=== PATIENT | male | born 1940 | race Caucasian/White ===

== ENCOUNTER → 2018-03-31 08:30 | Outpatient (CLI) | payer MEDICARE, SELFPAY ==
[2018-03-31 09:44] LABS: Alanine Aminotransferase 56 IU/L (21-72); Aspartate Aminotransferase 52 IU/L (17-59); Bilirubin Total 1.3 mg/dL (0.2-1.3); Blood Urea Nitrogen 12 mg/dL (9-20); Calcium 9.4 mg/dL (8.4-10.2); Carbon Dioxide 25 mmol/L (22-32); Chloride 102 mmol/L (98-107); Cholesterol 181 mg/dL (140-199); Estimated Glomerular Filt Rate > 60.0 mL/min (>60); Glucose 208 mg/dL (80-110); HDL Cholesterol 64 mg/dL (40-60); HEMOLYSIS < 15 (0-50); LDL Cholesterol Calculated 80 mg/dL (<100); Potassium 3.8 mmol/L (3.4-5.1); Sodium 141 mmol/L (137-145); Triglycerides 186 mg/dL (35-150)
[2018-03-31 09:52] LABS: INR 1.1 (0.9-1.3); Prothrombin Time 12.4 SECONDS (10.1-12.7)
[2018-03-31 10:11] LABS: Prostate Specific Antigen Scrn 2.48 ng/mL (0.1-4.0)
== END ==
PROVIDERS: Visit Provider Internal Medicine
DX: I10 Essential (primary) hypertension (principal); Z00.00 Encounter for general adult medical examination without abnormal findings; F10.10 Alcohol abuse, uncomplicated
CPT/HCPCS: 36415; 80048; 80061; 82247; 84450; 84460; 85610; G0103

== ENCOUNTER → 2019-03-20 08:09 | Outpatient (CLI) | payer MEDICARE, SELFPAY ==
--- NOTE | 2019-03-20 | DI.RAD.S_ITS ---
PROCEDURE: XR CERVICAL SPINE 4V OR 5V INDICATIONS: Generalized abdominal pain TECHNIQUE: 5 views of the cervical spine acquired. COMPARISON: None. FINDINGS: Bones: No fractures or dislocations to the T1 level. Oblique images demonstrate no bony foraminal stenoses. Note is made of a moderate degree of degenerative disc disease at C5-6 and a slightly less degree of degeneration is noted at the disc levels C4-5. The oblique views show neural foraminal stenosis from facet osteoarthritis at these 2 levels, moderate in severity and symmetric. Soft tissues: No prevertebral soft tissue swelling. IMPRESSION: No trauma found, and no subluxation present. 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 Dictated by: Aravind Wu M.D. on 03/20/2019 at 10:51 Approved by: Aravind Wu M.D. on 03/20/2019 at 10:52
--- NOTE | 2019-03-20 09:03 | DI.CT.S_ITS ---
PROCEDURE: CT ABDOMEN PELVIS WO CON INDICATIONS: Generalized abdominal pain TECHNIQUE: After the administration of oral contrast, 5 mm thick sections acquired from the diaphragms to the symphysis. 5 mm coronal and sagittal reformats were performed. For radiation dose reduction, the following was used: automated exposure control, adjustment of mA and/or kV according to patient size. COMPARISON: None. FINDINGS: Image quality: Excellent. ABDOMEN: Lung bases: Lung bases are clear. Heart size is normal. Solid organs: Liver is normal in size. There is a low density lesion in the posterior segment of the right lobe of the liver which measures approximately 2.7 cm, and may potentially represent a metastatic lesion. Gallbladder is unremarkable. There is a necrotic appearing mass in the midabdomen which appears to arise from the pancreatic body, likely representing a adenocarcinoma of the pancreas. It measures approximately 5.6 x 7.6 x 5.8 cm. It may also involve the posterior wall of the stomach. Spleen is normal in size. No adrenal nodules. Both kidneys are normal in size, without hydronephrosis or nephrolithiasis. Peritoneum and bowel: Bowel loops demonstrate normal wall thickness and caliber. No free fluid or air. Nodes and vessels: No retroperitoneal or mesenteric adenopathy by size criteria. Aorta and inferior vena cava are normal in size. Shotty mesenteric adenopathy. The largest single lymph node, just anterior to the inferior vena cava, measures approximately 2.6 x 1.1 x 2.1 cm. Miscellaneous: No ventral hernias. PELVIS: Genitourinary: Bladder wall thickness is normal. Miscellaneous: Question previous repair of right inguinal hernia. Mild left inguinal hernia containing fat.. Bones: No suspicious bony lesions. No vertebral body compression fractures. Bilateral total hip arthroplasties. IMPRESSION: Findings are highly suspicious for a large pancreatic adenocarcinoma, which may potentially involve the posterior wall of the stomach. There is also a possible liver metastatic lesion. Comment: Recommend CT with contrast or multiphase MRI. After either of these studies is performed, the pancreatic mass, or the liver mass (does not hemangioma) would be amenable to image guided biopsy. Dictated by: Simón Cavazos M.D. on 03/20/2019 at 10:07 Approved by: Simón Cavazos M.D. on 03/20/2019 at 10:16
[2019-03-20 09:29] LABS: Add Manual Diff / Slide Review NO; Basophils Absolute Auto 100 /uL (0-100); Basophils Percent Auto 0.8 % (0-2); Eosinophils Absolute Auto 900 /uL (0-450); Eosinophils Percent Auto 7.3 % (2-4); Hematocrit 46.2 % (41-53); Lymphocytes Absolute Auto 2300 /uL (1100-4500); Mean Corpuscular HGB Conc 34.5 % (30-36); Mean Corpuscular Volume 101.5 fL (80-100); Monocytes Absolute Auto 1100 /uL (0-900); Monocytes Percent Auto 8.3 % (3-14); Neutrophils Absolute Auto 8300 /uL (1500-7000); Neutrophils Percent Auto 65.6 % (50-75); Platelet Count 333 X10^3/uL (150-400); Red Blood Cell Count 4.56 X10^6/uL (4.5-5.9); Red Cell Distribution Width 12.7 % (11.6-14.8); White Blood Cell Count 12.7 X10^3/uL (4.5-11.0)
[2019-03-20 09:38] LABS: Hemoglobin A1C% w Est Avg Glu 6.5 % (4.0-6.0)
[2019-03-20 09:41] LABS: Alanine Aminotransferase 20 IU/L (<50); Albumin 4.1 g/dL (3.5-5.0); Albumin Globulin Ratio 1.2 (1.0-2.8); Alkaline Phosphatase 122 U/L (38-126); Aspartate Aminotransferase 34 IU/L (17-59); BUN Creatinine Ratio 11.3 (6-22); Bilirubin Total 1.2 mg/dL (0.2-1.3); Blood Urea Nitrogen 9 mg/dL (9-20); Calcium 9.6 mg/dL (8.4-10.2); Carbon Dioxide 27 mmol/L (22-32); Chloride 98 mmol/L (98-107); Estimated Glomerular Filt Rate > 60.0 mL/min (>60); Globulin 3.3 g/dL (1.7-4.1); Glucose 188 mg/dL (80-110); HEMOLYSIS < 15 (0-50); Potassium 3.7 mmol/L (3.4-5.1); Sodium 137 mmol/L (137-145); Total Protein 7.4 g/dL (6.3-8.2)
[2019-03-20 10:10] LABS: TSH w/ Reflex to FT4 2.73 uIU/mL (0.47-4.68)
== END ==
PROVIDERS: Visit Provider Internal Medicine
DX: R10.84 Generalized abdominal pain (principal); K86.9 Disease of pancreas, unspecified; K76.9 Liver disease, unspecified; K40.90 Unilateral inguinal hernia, without obstruction or gangrene, not specified as recurrent; M50.321 Other cervical disc degeneration at C4-C5 level; M48.02 Spinal stenosis, cervical region; M47.812 Spondylosis without myelopathy or radiculopathy, cervical region; R63.0 Anorexia; E11.9 Type 2 diabetes mellitus without complications; R63.4 Abnormal weight loss
CPT/HCPCS: 36415; 72050; 74176; 80053; 83036; 84443; 85025; Q9967

== ENCOUNTER → 2019-03-21 11:02 | Outpatient (CLI) | payer MEDICARE, SELFPAY ==
--- NOTE | 2019-03-21 | DI.CT.S_ITS ---
PROCEDURE: CT ABDOMEN W CON INDICATIONS: PANCREATIC MASS TECHNIQUE: After the administration of intravenous contrast, 5 mm thick sections acquired from the diaphragm to the iliac crests. 5 mm coronal and sagittal reformats were performed. For radiation dose reduction, the following was used: automated exposure control, adjustment of mA and/or kV according to patient size. COMPARISON: CT abdomen pelvis without IV contrast earlier today. FINDINGS: Image quality: Excellent. Lung bases: Cavitary nodule the right lung base measuring 12 mm, (7/4). Right lower lobe pulmonary nodule measuring 8 mm, (3/66). Solid pulmonary nodule the left lung base measuring 6 mm (7/14). Mild bibasilar atelectasis. Heart size is normal. Solid organs: Hypoenhancing cystic pancreatic mass in the body of the pancreas measuring 7.5 x 5.7 cm, (2/55). The mass is exophytic anteriorly into and abuts the gastric wall. There is upstream pancreatic ductal dilatation measuring 0.8 cm, (6/58). The mass encases the splenic artery and splenic vein. The pancreatic head and neck are atrophic. Liver is normal in size. There are multiple (approximately 15) rim-enhancing hepatic metastases. For example: -Inferior right lobe measuring 2.8 x 2.7 cm, (2/61). -Left hepatic lobe anteriorly measuring 1 x 0.9 cm, (2/47). Gallbladder is mildly distended. No calcified gallstones seen. No pericholecystic fluid. Biliary system is non dilated. Spleen is normal in size and enhancement. No adrenal nodules. Kidneys demonstrate normal size and enhancement, without hydronephrosis. Small cortical and peripelvic cysts bilaterally. No solid mass. Peritoneum and bowel: Bowel loops demonstrate normal wall thickness and caliber. No free fluid or air. Nodes and vessels: A precaval lymph node measuring 2 x 1.3 cm (2/60). Small retroperitoneal lymph nodes. Aorta and inferior vena cava are normal in size. Moderate calcified atherosclerotic plaque in the abdominal aorta. Miscellaneous: No ventral hernias. Bones: No suspicious lesion identified. Degenerative change. IMPRESSION: 1. Hypoenhancing cystic mucinous pancreatic mass measuring 7.5 cm. 2. Multiple rim-enhancing hepatic metastases. 3. Enlarged precaval lymph node. 4. Multiple pulmonary nodules of the lung bases. Dictated by: Judd Herrera M.D. on 03/21/2019 at 16:00 Approved by: Judd Herrera M.D. on 03/21/2019 at 16:24
--- NOTE | 2019-03-28 13:10 | ONC.MSW ---
Description: Initial Referral Navigation T/C Activity: Left message for pt introducing myself as the navigator and role, confirmed that we have his referral and will f/u with him after 04/03 to schedule, per his request.
== END ==
PROVIDERS: Visit Provider Internal Medicine
DX: C78.7 Secondary malignant neoplasm of liver and intrahepatic bile duct (principal); K86.89 Other specified diseases of pancreas; R91.8 Other nonspecific abnormal finding of lung field; R59.0 Localized enlarged lymph nodes; J98.11 Atelectasis; N20.0 Calculus of kidney
CPT/HCPCS: 74160; Q9967

== ENCOUNTER → 2019-04-04 14:49 | Oncology outpatient (ONC) | payer MEDICARE, SELFPAY ==
[2019-04-03 15:14] VITALS: BP 143/82; PULSE 87; RESP 16; TEMP 36.9; O2SAT 97
--- NOTE | 2019-04-03 16:02 | P.CONONC_ITS ---
History of Present Illness - Data of Consult Consult date: 04/03/19 - Consult Narrative Narrative: Diagnosis: Probable metastatic pancreatic cancer History of present illness: Nathan Schafer is a 79 year old male who is referred for further evaluation of a newly discovered pancreatic mass. The patient reports that over the last year, he has had a gradual decline in his appetite and weight. These changes have been more severe over the last 3 months. He has also developed increasing fatigue. He thinks that he has lost 30-40 lb. He is not having any vomiting but does have occasional nausea. He has not been having any persistent abdominal pain. He has been tending towards constipation and has not been having any diarrhea. Because of his weight loss, his suggested that he seek medical attention. He had a CT scan done that showed a mass in the pancreas. There also multiple rim enhancing lesions throughout the liver. There are few small pulmonary nodules. He has not yet had a biopsy performed. His past medical history is notable for diabetes and hypertension. He has had prior cataract surgery and hip surgery. His medications include Aleve, hydrochlorothiazide, lisinopril, metformin and vitamins Family history is notable for brother with colon cancer. There is no other family history of malignancy. Social history: He is . He does not smoke but does drink about a half a bottle of wine daily. 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 CC: Lenin Verduzco MD Home Medications and Allergies Home Medications Medication Instructions Recorded Confirmed Type hydrochlorothiazide 25 mg PO DAILY 04/03/19 04/03/19 History lisinopril 10 mg PO DAILY 04/03/19 04/03/19 History naproxen sodium [Aleve] 220 mg PO Q12H PRN 04/03/19 04/03/19 History vitamin B complex 1 tab PO DAILY 04/03/19 04/03/19 History Allergies Allergy/AdvReac Type Severity Reaction Status Date / Time No Known Drug Allergies Allergy Verified 04/03/19 15:14 Medical History - Social History Smoking Status: Never smoker Alcohol Intake Frequency: 3 or more drinks per day Review of Systems - Patient Self-Reported Symptoms SR Constitution: Weight loss/gain SR ears, nose, mouth, throat issues: Ears ringing SR Gastrointestinal issues: Poor or no appetite Constitutional: weight loss, decreased activity level Cardiovascular: no chest pain Respiratory: no shortness of breath Gastrointestinal: change in appetite, nausea, constipation, no abdominal pain, no vomiting Musculoskeletal: pain Hematologic/Lymphatic: no enlarged lymph nodes Exam Vital signs: Vital Signs Temp Pulse Resp BP Pulse Ox 04/03/19 15:14 98.4 F 87 16 143/82 H 97 Intake and Output 04/03/19 04/03/19 04/03/19 07:59 15:59 23:59 Other: Weight 105.5 kg Patient Weight 04/03/19 23:59 Weight 105.5 kg - Constitutional positive no acute distress, positive average body habitus Comments: He is hard of hearing. - Routine HEENT Exam Head: Present: normocephalic, atraumatic Eye: Present: EOMI, PERRL. Absent: conjunctival icterus, scleral injection ENT: Present: mucous membranes moist, oropharynx clear - Routine Neck Exam Present: supple. Absent: lymphadenopathy, thyromegaly - Routine Respiratory Exam Present: Clear to auscultation bilaterally. Absent: rales, wheezes - Routine Cardiovascular Exam Present: RRR, S1, S2. Absent: murmur - Routine Abdominal Exam Present: soft, normoactive bowel sounds. Absent: tenderness, organomegaly, mass - Routine Extremities Exam Absent: cyanosis, clubbing, edema - Routine Back/Spine Exam Back/Spine: Absent: vertebral tenderness - Routine Skin Exam Present: intact. Absent: petechiae, rash - Routine Neurological Exam Present: alert, oriented X3 - Routine Psychiatric Exam Present: normal affect, normal thought process Results - Imaging Additional studies: Procedures Replacement of Left Hip Joint with Synthetic Substitute, Uncemented, Open Approach (05/19/15) Reposition Left Femoral Shaft with Internal Fixation Device, Open Approach (05/19/15) Assessment and Plan (1) Pancreatic mass Current visit: Yes Status: Acute 79-year-old man with anorexia and weight loss. His CT scan demonstrates 7 cm pancreatic mass with probable liver and possible lung metastasis. He has not yet had a biopsy. This is I think most consistent with an adenocarcinoma of the pancreas. It is possible though I think less likely that it might represent a neuroendocrine tumor. I explained that on average, pancreatic cancers tended to grow relatively quickly. Chemotherapy could prolonged survival but at the risk for potential toxicity. The survival benefit is usually measured in months. I described the gemcitabine and Abraxane given intravenously. Side effects including alopecia, nausea and vomiting, myelosuppression and risk for fatigue, risk for infection, risk for allergic reactions and neuropathy were also reviewed. I explained that some patients elected not to pursue chemotherapy. In those cases, we would often get hospice involved. The patient indicates that he is not inclined to pursue chemotherapy and would prefer a more palliative approach. I think that is quite reasonable. We talked about the potential for pursuing a biopsy either percutaneous liver lesion or endoscopy with a biopsy of the pancreatic mass. This would potentially confirm the diagnosis and give us more definitive prognostic information. Since he is not inclined to pursue chemotherapy however, we could just follow him expectantly to get a better idea of his cancers velocity. He would prefer to avoid invasive procedures specially if they do not lead to a treatment decision. With that in mind, we will forego immediate biopsy. Instead, we will check a CA 19 9 today. He will return to clinic in about 4 weeks for follow-up with repeat labs. If he does develop of pain in the interim, he will let us know. He and his had questions regarding the course of a metastatic pancreatic cancer. I described the potential for abdominal or back pain. The potential for liver failure. We also talked about constitutional symptoms including anorexia weight loss and weakness. They had questions regarding appetite stimulants. I explained that medical marijuana of sometimes is helpful. Other options such as Megace or steroids would have a lower likelihood of success and the potentially more side effects. He will return to clinic in about 4 weeks for follow-up but sooner should any new symptoms arise.
[2019-04-04 15:21] LABS: Add Manual Diff / Slide Review NO; Basophils Absolute Auto 100 /uL (0-100); Basophils Percent Auto 0.9 % (0-2); Eosinophils Absolute Auto 700 /uL (0-450); Eosinophils Percent Auto 5.2 % (2-4); Hematocrit 43.5 % (41-53); Hemoglobin 14.8 g/dL (13.5-17.5); Lymphocytes Absolute Auto 1800 /uL (1100-4500); Lymphocytes Percent Auto 12.8 % (25-40); Mean Corpuscular Volume 99.9 fL (80-100); Monocytes Absolute Auto 1500 /uL (0-900); Monocytes Percent Auto 10.8 % (3-14); Neutrophils Absolute Auto 9700 /uL (1500-7000); Neutrophils Percent Auto 70.3 % (50-75); Platelet Count 306 X10^3/uL (150-400); Red Blood Cell Count 4.36 X10^6/uL (4.5-5.9); Red Cell Distribution Width 12.6 % (11.6-14.8); White Blood Cell Count 13.7 X10^3/uL (4.5-11.0)
[2019-04-04 15:30] LABS: Alanine Aminotransferase 22 IU/L (<50); Albumin 3.8 g/dL (3.5-5.0); Albumin Globulin Ratio 1.2 (1.0-2.8); Alkaline Phosphatase 127 U/L (38-126); Aspartate Aminotransferase 31 IU/L (17-59); BUN Creatinine Ratio 14.3 (6-22); Bilirubin Total 0.8 mg/dL (0.2-1.3); Blood Urea Nitrogen 10 mg/dL (9-20); Calcium 9.2 mg/dL (8.4-10.2); Carbon Dioxide 27 mmol/L (22-32); Chloride 98 mmol/L (98-107); Estimated Glomerular Filt Rate > 60.0 mL/min (>60); Globulin 3.3 g/dL (1.7-4.1); Glucose 237 mg/dL (80-110); HEMOLYSIS < 15 (0-50); Potassium 3.8 mmol/L (3.4-5.1); Sodium 134 mmol/L (137-145); Total Protein 7.1 g/dL (6.3-8.2)
[2019-04-06 15:33] LABS: Cancer (Carbohydrate) Ag 19-9 6129 U/mL (< 34)
--- NOTE | 2019-05-07 11:28 | ONC.MSW ---
*Sent bereavement card.
== END ==
DX: K86.9 Disease of pancreas, unspecified (principal); K76.9 Liver disease, unspecified; R91.8 Other nonspecific abnormal finding of lung field; R63.0 Anorexia; R63.4 Abnormal weight loss; E11.9 Type 2 diabetes mellitus without complications; I10 Essential (primary) hypertension
CPT/HCPCS: 36415; 80053; 85025; 86301; 99204; 99214

== ENCOUNTER 2019-04-19 04:30 | Observation (INO) | payer MEDICARE, SELFPAY ==
[2019-04-19] VITALS (7 sets, daily range): BP systolic 111–143; BP diastolic 63–75; PULSE 74–106; RESP 16–25; TEMP 36.6–37.4; O2SAT 96–99; BMI 32.1
--- NOTE | 2019-04-19 04:41 | ED_ITS ---
HPI - SOB/Dyspnea General Chief Complaint: Shortness of Breath/Dyspnea Stated Complaint: Coughing up blood Time Seen by Provider: 04/19/19 04:38 Source: family, EMS and old records reviewed Limitations: no limitations History of Present Illness HPI Narrative: Patient is a 79-year-old male with a prostate cancer not currently undergoing treatment and is going to elect hospice however not admitted to hospice yet presenting today with hemoptysis. states that he does cough quite violently at times in today he coughed up 3/4 to a cup full of blood. He did not vomit. He has no abdominal pain he is not short of breath, he denies any chest pain or heart palpitations. He is overall weak and fatigued. We are agreeable to workup of hemoptysis but goal is for him to return home. Related Data Home Medications Medication Instructions Recorded Confirmed hydrochlorothiazide 25 mg PO DAILY 04/03/19 04/03/19 lisinopril 10 mg PO DAILY 04/03/19 04/03/19 naproxen sodium [Aleve] 220 mg PO Q12H PRN 04/03/19 04/03/19 vitamin B complex 1 tab PO DAILY 04/03/19 04/03/19 Allergies Allergy/AdvReac Type Severity Reaction Status Date / Time No Known Drug Allergies Allergy Verified 04/03/19 15:14 Review of Systems Review of Systems ROS Unobtainable: All systems reviewed & are unremarkable except as noted in HPI and below Constitutional Constitutional: Denies chills, Denies fever(s), Denies lethargy and Reports weakness Eyes Eyes: Denies change in vision, Denies eye discharge, Denies irritation and Denies loss of vision ENT Ears, Nose, Mouth, and Throat: Denies change in voice, Denies neck pain and Denies sore throat Cardiovascular Cardiovascular: Denies chest pain, Denies irregular heart rhythm, Denies lightheadedness, Denies palpitations and Denies orthopnea Respiratory Respiratory: Reports as per HPI, Reports cough and Reports hemoptysis Gastrointestinal Gastrointestinal: Reports as per HPI Genitourinary Genitourinary: Denies hematuria, Denies flank pain, Denies urinary incontinence and Denies urinary urgency Musculoskeletal Musculoskeletal: Denies neck pain Integumentary/Breasts Skin/Breast: Denies pruritus, Denies erythema, Denies rash and Denies wounds Neurologic Neurologic: Denies loss of vision and Reports weakness Endocrine Endocrine: Denies palpitations Patient History Medical History 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 (Acute) Social History Smoking Status: Never smoker Smoking Status: Never smoker alcohol intake frequency: 3 or more drinks per day Exam Initial Vital Signs Initial Vital Signs: Vital Signs Temperature 97.8 F 04/19/19 04:35 Pulse Rate 106 H 04/19/19 04:35 Respiratory Rate 22 04/19/19 04:35 Blood Pressure 111/64 04/19/19 04:35 Pulse Oximetry 97 04/19/19 04:35 GENERAL: Alert chronically ill male appears slightly jaundiced and slightly pale and in no acute distress. HEENT: Head atraumatic,EOMI, pupils reactive, face symmetric, dry CARDIOVASCULAR: Regular rate and rhythm without murmurs, rubs or gallops. RESPIRATORY: Breath sounds equal bilaterally, no wheezes rales or rhonchi. ABDOMEN: Soft, nontender. Normoactive bowel sounds all 4 quadrants. No guarding or rebound. EXTREMITIES: Normal range of motion, no clubbing or edema. Neurovascularly intact NEUROLOGICAL: Alert and oriented x4. Clear speech moving all extremities SKIN: Warm, dry, no laceration, no petechiae, no rashes or lesions. Course Orders Ordered: ED Orders 04/19/19 04:42 Consult to Respiratory Therapy Evaluate & Treat 04/19/19 04:43 CT angio chest PE protocol Stat 04/19/19 04:45 Complete Blood Count AUTO DIFF Stat Comprehensive Metabolic Panel Stat Lactate (Lactic Acid) Stat Lipase Stat Partial Thromboplastin Time Stat Procalcitonin Stat Prothrombin Time INR Stat Troponin & CK Cardiac Panel Stat 04/19/19 04:58 EKG-12 Lead Stat 04/19/19 05:22 CT abdomen pelvis w con Stat 04/19/19 05:55 Lactate (Lactic Acid) Stat Type and Screen Stat 04/19/19 06:34 Urinalysis and Microscopic Stat 04/19/19 06:52 Blood Culture Stat 04/19/19 07:15 Respiratory Panel (Film Array) Stat Vancomycin HCl/Dextrose (Vancomycin) 1,500 mg in 300 mls @ 200 mls/hr IV NOW ONE Stop: 04/19/19 08:03 Lactated Ringer's (Lactated Ringers) 3,401.94 mls @ 1,133.98 mls/hr 30 ml/kg infuse over 3 hr (3401.94 ml) IV NOW ONE Stop: 04/19/19 09:33 Last Admin: 04/19/19 06:41 Dose: 1,133.98 mls/hr Documented by: ANTHONY Discontinued Medications Piperacillin/Tazobactam/Dextrose (Zosyn) 3.375 gm in 50 mls @ 100 mls/hr IV NOW ONE Stop: 04/19/19 07:04 Last Infusion: 04/19/19 07:33 Dose: 0 mls/hr Documented by: Admin: 04/19/19 07:01 Dose: 100 mls/hr Documented by: MMCCAROL Vital Signs Vital signs: Vital Signs - 8 hr 04/19/19 04:35 04/19/19 06:19 04/19/19 06:35 Temperature 97.8 F Pulse Rate 106 H 80 87 Respiratory Rate 22 25 H 24 Blood Pressure 111/64 Blood Pressure [Left Arm] 111/70 123/66 Pulse Oximetry 97 96 98 MDM - SOB/Dyspnea Lab Data Attestation: I reviewed the patient's lab results. Result diagrams: 04/19/19 04:45 04/19/19 04:45 Labs: Lab Results 04/19/19 04/19/19 04/19/19 Range/Units 04:45 04:45 04:45 WBC 29.9 H (4.5-11.0) X10^3/uL RBC 3.31 L (4.5-5.9) X10^6/uL Hgb 10.8 L (13.5-17.5) g/dL Hct 33.1 L (41-53) % MCV 99.8 (80-100) fL MCH 32.7 (26-34) PG MCHC 32.8 (30-36) % RDW 12.7 (11.6-14.8) % Plt Count 366 (150-400) X10^3/uL Neut % (Auto) Not Reportable Lymph % (Auto) Not Reportable [place] % (Auto) Not Reportable Eos % (Auto) Not Reportable Baso % (Auto) Not Reportable Lymph # (Auto) Not Reportable [place] # (Auto) Not Reportable Baso # (Auto) Not Reportable Total Counted 100 Seg Neutrophils % 86.0 H (38-70) % Band Neutrophils % 2.0 L (3-7) % Lymphocytes % (Manual) 2.0 L (25-45) % Atypical Lymphs % 2.0 H ( - 0) % Monocytes % (Manual) 7.0 (2-11) % Metamyelocytes % 1.0 H (-0) % Neutrophils # (Manual) 45067 H (0622-7526) /uL RBC Morphology Normal morphology PT 19.0 H (10.1-12.7) SECONDS INR 1.6 H (0.9-1.3) APTT 28 (26.4-36.2) SECONDS Sodium (137-145) mmol/L Potassium (3.4-5.1) mmol/L Chloride (98-107) mmol/L Carbon Dioxide (22-32) mmol/L BUN (9-20) mg/dL Creatinine (0.66-1.25) mg/dL Estimated GFR (>60) mL/min BUN/Creatinine Ratio (6-22) Glucose (80-110) mg/dL Lactate (0.7-2.1) mmol/L Calcium (8.4-10.2) mg/dL Total Bilirubin (0.2-1.3) mg/dL AST (17-59) IU/L ALT (<50) IU/L Alkaline Phosphatase (38-126) U/L Total Creatine Kinase < 20 L (55-170) U/L CK-MB (CK-2) TNP CK-MB (CK-2) Rel Index TNP Troponin I < 0.012 (0.01-0.034) ng/mL Total Protein (6.3-8.2) g/dL Albumin (3.5-5.0) g/dL Globulin (1.7-4.1) g/dL Albumin/Globulin Ratio (1.0-2.8) Lipase (23-300) U/L Procalcitonin (<0.5) ng/mL Blood Type Antibody Screen 04/19/19 04/19/19 04/19/19 Range/Units 04:45 04:45 04:45 WBC (4.5-11.0) X10^3/uL RBC (4.5-5.9) X10^6/uL Hgb (13.5-17.5) g/dL Hct (41-53) % MCV (80-100) fL MCH (26-34) PG MCHC (30-36) % RDW (11.6-14.8) % Plt Count (150-400) X10^3/uL Neut % (Auto) Lymph % (Auto) [place] % (Auto) Eos % (Auto) Baso % (Auto) Lymph # (Auto) [place] # (Auto) Baso # (Auto) Total Counted Seg Neutrophils % (38-70) % Band Neutrophils % (3-7) % Lymphocytes % (Manual) (25-45) % Atypical Lymphs % ( - 0) % Monocytes % (Manual) (2-11) % Metamyelocytes % (-0) % Neutrophils # (Manual) (0987-7228) /uL RBC Morphology PT (10.1-12.7) SECONDS INR (0.9-1.3) APTT (26.4-36.2) SECONDS Sodium 131 L (137-145) mmol/L Potassium 5.0 (3.4-5.1) mmol/L Chloride 99 (98-107) mmol/L Carbon Dioxide 17 L (22-32) mmol/L BUN 11 (9-20) mg/dL Creatinine 0.90 (0.66-1.25) mg/dL Estimated GFR > 60.0 (>60) mL/min BUN/Creatinine Ratio 12.2 (6-22) Glucose 347 H (80-110) mg/dL Lactate 7.4 H* (0.7-2.1) mmol/L Calcium 8.5 (8.4-10.2) mg/dL Total Bilirubin 0.7 (0.2-1.3) mg/dL AST 31 (17-59) IU/L ALT 29 (<50) IU/L Alkaline Phosphatase 166 H (38-126) U/L Total Creatine Kinase (55-170) U/L CK-MB (CK-2) CK-MB (CK-2) Rel Index Troponin I (0.01-0.034) ng/mL Total Protein 5.6 L (6.3-8.2) g/dL Albumin 3.0 L (3.5-5.0) g/dL Globulin 2.6 (1.7-4.1) g/dL Albumin/Globulin Ratio 1.2 (1.0-2.8) Lipase (23-300) U/L Procalcitonin 0.60 H (<0.5) ng/mL Blood Type Antibody Screen 04/19/19 04/19/19 04/19/19 Range/Units 04:45 05:55 05:55 WBC (4.5-11.0) X10^3/uL RBC (4.5-5.9) X10^6/uL Hgb (13.5-17.5) g/dL Hct (41-53) % MCV (80-100) fL MCH (26-34) PG MCHC (30-36) % RDW (11.6-14.8) % Plt Count (150-400) X10^3/uL Neut % (Auto) Lymph % (Auto) [place] % (Auto) Eos % (Auto) Baso % (Auto) Lymph # (Auto) [place] # (Auto) Baso # (Auto) Total Counted Seg Neutrophils % (38-70) % Band Neutrophils % (3-7) % Lymphocytes % (Manual) (25-45) % Atypical Lymphs % ( - 0) % Monocytes % (Manual) (2-11) % Metamyelocytes % (-0) % Neutrophils # (Manual) (5879-8561) /uL RBC Morphology PT (10.1-12.7) SECONDS INR (0.9-1.3) APTT (26.4-36.2) SECONDS Sodium (137-145) mmol/L Potassium (3.4-5.1) mmol/L Chloride (98-107) mmol/L Carbon Dioxide (22-32) mmol/L BUN (9-20) mg/dL Creatinine (0.66-1.25) mg/dL Estimated GFR (>60) mL/min BUN/Creatinine Ratio (6-22) Glucose (80-110) mg/dL Lactate 6.4 H* (0.7-2.1) mmol/L Calcium (8.4-10.2) mg/dL Total Bilirubin (0.2-1.3) mg/dL AST (17-59) IU/L ALT (<50) IU/L Alkaline Phosphatase (38-126) U/L Total Creatine Kinase (55-170) U/L CK-MB (CK-2) CK-MB (CK-2) Rel Index Troponin I (0.01-0.034) ng/mL Total Protein (6.3-8.2) g/dL Albumin (3.5-5.0) g/dL Globulin (1.7-4.1) g/dL Albumin/Globulin Ratio (1.0-2.8) Lipase 28 (23-300) U/L Procalcitonin (<0.5) ng/mL Blood Type A Positive Antibody Screen Negative Imaging Data CT scan - chest: Radiologist's impression: Preliminary report occasional of the ascending thoracic aorta which measures 4.2 cm at level of right main pulmonary artery. Bilateral cavitary pulmonary nodules measuring up to 1 cm within right lower lobe. Differential considerations include infectious inflammatory process versus malignancy. Left aortic arch with aberrant right subclavian artery. No aortic dissection or central segmental pulmonary embolism. Subpleural honeycombing and reticular opacities suggesting early interstitial lung disease. Prominent mediastinal lymph nodes measuring up to 1 cm. Additional incidental findings as detailed. CT scan - abdomen: Radiologist's impression: Preliminary report hope large masses in body of pancreas which contains gas and there is apparent local invasion of posterior wall of the stomach. Lobulated mass within stomach measuring 10.6 time 7.4 cm possibly extension of previously described pancreatic mass. Numerous enhancing hepatic lesions consistent with metastatic disease. Adenopathy within jadiel hepaticus region. Additional incidental findings as detailed ECG Data Attestation: I personally reviewed and interpreted this ECG as follows: Prior ECG tracings: not available for review Interpretation: Sinus rhythm rate [address] elevation depression or T-wave inver lizzeth MDM Narrative Medical decision making narrative: Patient is found have significant leukocytosis of 29,000 lactic acid of 7.4. Not hypotensive been afebrile. CT does not actually show any pneumonia. Patient overall is awake alert and oriented and able to participate in decision making. Concern is for possible sepsis. He has not had any further episodes of hemoptysis. He is noted to be slightly anemic hemoglobin today is 10.8 previously 14, 2 weeks ago. He is started on sepsis fluid lactate is repeated it is real slightly low lower at 6.4. He is started on sepsis fluid and given IV antibiotics Zosyn and vancom ycin. I've discussed at length with both patient and . They are agreeable to IV fluids and antibiotics and monitoring in the hospital. They continue to not want any aggressive measures to be taken goal is to go home for [place] and get into hospice. They are aware if nothing is done is imminent. Destinee JEFFERS in ED to see patient accepts patient Critical Care Time Critical Care Time Critical Care Time: Yes Total Critical Care Time: 30 Attestation: The high probability of a clinically significant, sudden or life threatening deterioration of the [cardiovascular] system(s) required my full and direct attention, intervention and personal management. The aggregate critical care time was 30 minutes. This time is in addition to time spent performing reported procedures but includes the following: [x] Data Review and interpretation [x] Patient assessment and monitoring of vital signs [x] Documentation [x] Medication orders and management Discharge Plan Departure Prescriptions: No Action lisinopril 10 mg Tablet 10 mg PO DAILY RF: 0 naproxen sodium [Aleve] 220 mg Tablet 220 mg PO Q12H PRN (Reason: Pain (Scale Score 1-3)) RF: 0 vitamin B complex Tablet 1 tab PO DAILY RF: 0 hydrochlorothiazide 25 mg Tablet 25 mg PO DAILY RF: 0
--- NOTE | 2019-04-19 04:43 | DI.CT.S_ITS ---
PROCEDURE: CT ANGIO CHEST PE PROTOCOL INDICATIONS: Hemoptysis with prostate cancer TECHNIQUE: After the administration of intravenous contrast, 2 mm thick sections acquired from the pulmonary apices to the posterior costophrenic angles. 3-dimensional maximum intensity projection (MIP) coronal and sagittal reformats were then acquired through the thorax. For radiation dose reduction, the following was used: automated exposure control, adjustment of mA and/or kV according to patient size. COMPARISON: [facility], CT, CT ABDOMEN W CON, 03/21/2019, 11:58. [facility], CT, CT ABDOMEN PELVIS W CON, 04/19/2019, 5:20. [facility], CR, CHEST 2 VIEW, 05/10/2016, 12:27. FINDINGS: Image quality: Excellent. Pulmonary arteries: Pulmonary arteries are normal in size, and demonstrate no intraluminal filling defects to suggest central pulmonary embolism. Lungs and pleura: There are multiple cavitary nodules bilaterally, but with metastases. There are bibasilar infiltrates. No pleural effusions or pneumothorax. Central and peripheral airways are patent. Mediastinum: Heart size is normal, without pericardial effusion. No mediastinal or hilar adenopathy. Thoracic aorta is normal in caliber and enhancement. There is an aberrant right subclavian artery. Esophagus is normal in caliber, without hiatal hernia. Bones and chest wall: No suspicious bony lesions. Ribs and thoracic spine appear intact throughout. Thyroid gland is normal. No axillary or supraclavicular adenopathy. Abdomen: There are multiple hypodense nodules in the liver compatible with metastases. There is a mass in stomach. IMPRESSION: 1. No evidence for pulmonary embolism. 2. Multiple cavitary nodules in lungs bilaterally. In this patient with pancreatic mass metastatic disease is the most likely diagnosis. Other diagnostic considerations include TB or fungal infections and inflammatory nodules (Olegario's granulomatosis). 3. Bibasilar infiltrate suspicious for pneumonia. 4. subpleural septal thickening consistent with chronic interstitial lung disease. 5. Aberrant right subclavian artery. 6. Multiple low density nodules in liver are suspicious for liver metastases. Please see the abdominal CT report for detailed 7. A mass in stomach. Please see abdominal CT report for detail. Dictated by: Vick Carreon M.D. on 04/19/2019 at 7:20 Approved by: Vick Carreon M.D. on 04/19/2019 at 8:30
[2019-04-19 05:03] LABS: Hematocrit 33.1 % (41-53); Hemoglobin 10.8 g/dL (13.5-17.5); Mean Corpuscular HGB Conc 32.8 % (30-36); Mean Corpuscular Hemoglobin 32.7 PG (26-34); Mean Corpuscular Volume 99.8 fL (80-100); Platelet Count 366 X10^3/uL (150-400); Red Blood Cell Count 3.31 X10^6/uL (4.5-5.9); Red Cell Distribution Width 12.7 % (11.6-14.8); White Blood Cell Count 29.9 X10^3/uL (4.5-11.0)
[2019-04-19 05:04] LABS: INR 1.6 (0.9-1.3)
[2019-04-19 05:07] LABS: PTT Partial Thromboplastin Tim 28 SECONDS (26.4-36.2)
[2019-04-19 05:08] LABS: Creatine Kinase < 20 U/L (55-170)
[2019-04-19 05:09] LABS: Albumin Globulin Ratio 1.2 (1.0-2.8); Alkaline Phosphatase 166 U/L (38-126); Aspartate Aminotransferase 31 IU/L (17-59); BUN Creatinine Ratio 12.2 (6-22); Bilirubin Total 0.7 mg/dL (0.2-1.3); Blood Urea Nitrogen 11 mg/dL (9-20); Calcium 8.5 mg/dL (8.4-10.2); Carbon Dioxide 17 mmol/L (22-32); Chloride 99 mmol/L (98-107); Estimated Glomerular Filt Rate > 60.0 mL/min (>60); Globulin 2.6 g/dL (1.7-4.1); Glucose 347 mg/dL (80-110); HEMOLYSIS < 15 (0-50); Sodium 131 mmol/L (137-145); Total Protein 5.6 g/dL (6.3-8.2)
[2019-04-19 05:12] LABS: Add Manual Diff / Slide Review YES
[2019-04-19 05:15] LABS: Lactate (Lactic Acid) 7.4 mmol/L (0.7-2.1)
[2019-04-19 05:16] LABS: Alanine Aminotransferase 29 IU/L (<50)
[2019-04-19 05:21] LABS: Troponin I < 0.012 ng/mL (0.01-0.034)
--- NOTE | 2019-04-19 05:22 | DI.CT.S_ITS ---
PROCEDURE: CT ABDOMEN PELVIS W CON INDICATIONS: pancreatic cancer TECHNIQUE: After the administration of intravenous contrast, 5 mm thick sections acquired from the diaphragm to the symphysis. 5 mm coronal and sagittal reformats were acquired. For radiation dose reduction, the following was used: automated exposure control, adjustment of mA and/or kV according to patient size. COMPARISON: [facility], CT, CT ABDOMEN PELVIS WO CON, 03/20/2019, 9:16. FINDINGS: Image quality: Excellent. ABDOMEN: Lung bases: A basilar infiltrate suspicious for pneumonia. Heart size is normal. Solid organs: There are multiple ring-enhancing hypodense lesions in liver, increased in number and size, consistent with hepatic metastases. The largest lesion is in the inferior aspect of liver (segment 6) measuring 3.2 cm. And 2.2 x 2.4 cm mass is seen in the central liver next the gallbladder fossa. Liver is normal in size demonstrating mild diffuse hepatic steatosis. Gallbladder is contracted. There is trace pericholecystic fluid. Biliary system is non dilated. There is a large mass measuring 7.4 x 5.9 cm involving the pancreatic body/tail, consistent with pancreatic neoplasm. The mass has increased in size compared to 03/20/19. The mass is seen eroding into the posterior wall of the stomach. There is a defect along the posterior wall of the stomach with extraluminal air. The pancreatic tail is atrophic. There is marked dilation of pancreatic duct involving the pancreatic tail. There is partial encroachment of superior mesenteric vein and artery. There is encasement of splenic artery and veins, as well as the left gastric artery by the large mass. Spleen is normal in size and enhancement. No adrenal nodules. Kidneys demonstrate normal size and enhancement, without hydronephrosis. Low-density nodules in kidneys are compatible with hepatic cysts. Peritoneum and bowel: A large mass is seen within stomach lumen involving the gastric cardia measuring 7.2 x 10.9 cm, new since the last exam. Bowel loops demonstrate normal wall thickness and caliber. No free fluid or air. There are a couple of soft tissue nodules posterior to the hepatic capsule along the inferior liver measuring 1.6 cm and 0.7 cm, suspicious for metastatic peritoneal implants. Nodes and vessels: Enlarged periportal lymph nodes are identified consistent with metastasis. Aorta and inferior vena cava are normal in size. Miscellaneous: No ventral hernias. PELVIS: Genitourinary: Bladder wall thickness is normal. Miscellaneous: No inguinal hernias or adenopathy. Bones: No suspicious bony lesions. No vertebral body compression fractures. Severe degenerative changes in lumbar spine. IMPRESSION: 1. There is a large 7.4 x 5.9 cm mass arising from the pancreatic body/tail, increased in size compared to 03/20/2019. The mass is seen eroding into the posterior wall of the stomach. There is a defect along the posterior wall of the stomach with extraluminal air suspicious for stomach perforation. 2. There is partial encroachment of superior mesenteric artery and vein, and encasement of splenic artery and veins, as well as the left gastric artery by the large mass. 3. A large mass is seen within the stomach involving the the fundus and the greater curvatur of the stomach measuring 7.2 x 10.9 cm. This mass is new since the last exam. This might be likely a large hematoma but endoscopy is suggested for further evaluation. 4. Multiple hepatic lesions are consistent with liver metastases. Liver lesions are increased in number and size since the last exam. 5. Periportal lymphadenopathy consistent with metastases. 6. A couple of soft tissue nodules posterior to the hepatic capsule along the inferior liver, suspicious for metastatic peritoneal implants. 7. Bibasilar airspace opacities suspicious for pneumonia. No significant discrepancy with the manufacturing shift supervisor radiology preliminary report. Dictated by: Vick Carreon M.D. on 04/19/2019 at 7:47 Approved by: Vick Carreon M.D. on 04/19/2019 at 8:25
[2019-04-19 05:32] LABS: Neutrophils Absolute Manual 26312 /uL (3000-5900); Total Cells Counted 100
[2019-04-19 05:33] LABS: RBC Morphology Normal Morphology
[2019-04-19 06:22] LABS: Lactate (Lactic Acid) 6.4 mmol/L (0.7-2.1)
[2019-04-19] MEDS: LACTATED RINGERS 1133.98 ML IV (06:41)
[2019-04-19 06:50] LABS: Reflexed Lactate in 2 Hours Y
[2019-04-19 06:53] LABS: Lipase 28 U/L (23-300)
[2019-04-19] MEDS: PIPERACILLIN-TAZO 3.375 GM/50 ML FROZ.PIGGY IV (07:01)
[2019-04-19] MEDS: VANCOMYCIN 1,500 MG/300 ML FROZ.PIGGY 200 MG IV (07:43)
--- NOTE | 2019-04-19 07:47 | PC.NURSE ---
received report from CHACE Short. Pt resting in bed on L side. in room. Pt TAKOTNA. diagnosis of Pancreatic CA and discussing starting hospice care at todays admission. Reports she wants him to be comfortable but does not want any extended measures. Arrived for SOB and coughing blood. Lungs clear. breathing shallow. 98% RA. Zoysn completed and IV flushed and Vanco infusing at this time with 2nd Liter LR. urine obtained and sent. Lactate redrawn by RN. Resting in bed awaiting Acute care room
[2019-04-19 07:59] LABS: Reflexed Lactate in 2 Hours Y
[2019-04-19 08:12] LABS: Bacteria Urine None Seen; RBC Urine None Seen (0-5/HPF)
[2019-04-19 08:15] LABS: Appearance Urine UA CLEAR; Bilirubin Urine UA NEGATIVE (NEGATIVE); Color Urine UA YELLOW; Glucose Urine UA TRACE g/dL (Negative); Ketones Urine UA TRACE (NEGATIVE); Leukocyte Esterase Urine UA NEGATIVE (NEGATIVE); Nitrite Urine UA NEGATIVE (Negative); Occult Blood Urine UA NEGATIVE (Negative); Protein Urine UA NEGATIVE (Negative); Specific Gravity Urine UA <=1.005 (1.000-1.035)
--- NOTE | 2019-04-19 08:21 | PC.NURSE ---
Day shift: Pt on unit at approx 0820 from ED. Pt is A&Ox3. VS WNL. RA 97%. Spouse in room for support. Agrees to not get OOB w/o help from staff. Oriented to call light and room. Call light in reach. Denies any pain or discomfort.
[2019-04-19 08:28] LABS: Lactate 2HR (Lactic Acid Rflx) 5.5 mmol/L (0.7-2.1)
[2019-04-19 08:31] LABS: Amorphous Sediment Urine 1+; Culture Indicated Urine Cult Not Indicated; Mucus Urine 1+ (Negative); Squamous Epithelial Cell Urine 0-1 /HPF (0-5/HPF); WBC Urine 0-1/HPF (0-5/HPF)
[2019-04-19 08:34] LABS: Adenovirus Not Detected (Not Detect); Bordetella pertussis Not Detected (Not Detect); Chlamydophila pneumoniae Not Detected (Not Detect); Coronavirus 229E Not Detected (Not Detect); Coronavirus HKU1 Not Detected (Not Detect); Coronavirus NL 63 Not Detected (Not Detect); Coronavirus OC43 Not Detected (Not Detect); Human Metapneumovirus Not Detected (Not Detect); Human Rhinovirus/Enterovirus Not Detected (Not Detect); Influenza A Not Detected (Not Detect); Influenza B Not Detected (Not Detect); Mycoplasma pneumoniae Not Detected (Not Detect); Parainfluenza Virus 1 Not Detected (Not Detect); Parainfluenza Virus 2 Not Detected (Not Detect); Parainfluenza Virus 3 Not Detected (Not Detect); Parainfluenza Virus 4 Not Detected (Not Detect); Respiratory Syncytial Virus Not Detected (Not Detect)
--- NOTE | 2019-04-19 08:45 | P.HP_ITS ---
History of Present Illness History of Present Illness Date Patient Seen: 04/19/19 Time Patient Seen: 08:45 Chief complaint: Coughing up blood Narrative: The patient is a 79-year-old male with PMH of HTN, DM 2T, pancreatic mass (new dx), alcohol use (1/2 bottle of wine daily) Patient present to the ED on 04/19/2019 out of concern for hemoptysis. Symptoms initially noted w/in 24 hours of ED presentation. In reports approximately half a cup of bloody contents. Associated symptoms include a 10 day history of cough with yellow to green purulence, chills, generalized fatigue, diminished appetite and weight loss. He denies abdominal pain, nausea, and vomiting. Recently started having mild mid-lower back pain, fairly controlled. Patient has recently diagnosed with pancreatic mass with suspected metastasis to lung and/or liver. He has not had a biopsy for definitive confirmation. Patient was last seen by his oncologist, Dr. Verduzco, on 04/03/2019 with an in- depth discussion of his options. At that time patient opted out not to pursue a diagnostic biopsy and chemotherapy. Consequently, he was referred to hospice which he has seen in the past week; however, was reluctant to sign up with hospice with a desire to follow-up with his oncologist more time. As he was told that he cannot be on hospice and follow-up with oncology at the same time. On initial presentation to the ED patient was noted to have significant lab abnormalities. Specifically, leukocytosis and lactate of 7.4. CTA of the chest and CT of abdomen and pelvis was obtained (see below). Imaging showed a large 7.4 x 5.8 cm mass arising from the pancreatic body/tail (increased in size from previous), which is now eroding into the posterior wall of the stomach creating a perforation. Overall there is significant progression of the disease. ED Presentation & Work-Up VSS. WBC 29.9 Lactate 7.4 -> 6.4 -> 5.5 PCT 0.6 RVP negative Hgb 10.8 Plt 366 Na 131 K 5.0 Cl 99 Ca 8.5 Alb 3.0 Glu 347 CO2 17 BUN 11 Cr 0.9 T.Bili AST 31 ALT 29 Alk Phos 166 CK < 20 UA trace ketones and glucose CTA of Chest No evidence for pulmonary embolism. Multiple cavitary nodules in lungs bilaterally. In this patient with pancreatic mass metastatic disease is the most likely diagnosis. Other diagnostic considerations include TB or fungal infections and inflammatory nodules (Olegario's granulomatosis). Bibasilar infiltrate suspicious for pneumonia. Sub-pleural septal thickening consistent with chronic interstitial lung disease. Aberrant right subclavian artery. Multiple low density nodules in liver are suspicious for liver metastases. Please see the abdominal CT report for detailed. A mass in stomach. Please see abdominal CT report for detail. CT of A/P CT of A/P revealed a large 7.4 by 5.9 cm mass arising from the pancreatic body / tail, increased in size (compared to 03/20/19). The mass is seen eroding into the posterior wall of the stomach. There's a defect along the posterior wall of the stomach with extra luminal air suspicious for stomach perforation. There is partial encroachment of superior mesenteric artery and vein, and encasement of splenic artery and veins, as well as the left gastric artery by the large mass. A large mass is seen within the stomach involving the the fundus and the greater curvature of the stomach measuring 7.2 x 10.9 cm. This mass is new since the last exam. This might be likely a large hematoma but endoscopy is suggested for further evaluation. Multiple hepatic lesions are consistent with liver metastases. Liver lesions are increased in number and size since the last exam. In ED patient was treated with LR bolus per sepsis protocol. And started on vancomycin and Zosyn. Patient History Medical History (Updated 04/19/19 @ 10:13 by AURY Doty) Diabetes mellitus (Chronic) Essential hypertension (Chronic) 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 (Acute) Family & Social History Family History (Updated 04/19/19 @ 10:14 by AURY Doty) Father Cancer Safety & Behavioral: Feels Safe in Current Yes Environment Tobacco & Substance use: Smoking Status Never smoker alcohol intake frequency 3 or more drinks per day Substance Use Type marijuana Meds Home Medications and Allergies Home Medications Medication Instructions Recorded Confirmed Type hydrochlorothiazide 25 mg PO DAILY 04/03/19 04/03/19 History lisinopril 10 mg PO DAILY 04/03/19 04/03/19 History naproxen sodium [Aleve] 220 mg PO Q12H PRN 04/03/19 04/19/19 History vitamin B complex 1 tab PO DAILY 04/03/19 04/19/19 History levofloxacin 500 mg PO DAILY 04/19/19 04/19/19 History Allergies Allergy/AdvReac Type Severity Reaction Status Date / Time No Known Drug Allergies Allergy Verified 04/03/19 15:14 Review of Systems Review of Systems ROS Unobtainable: All systems reviewed & are unremarkable except as noted in HPI and below Exam Vital Signs (past 8 hours): - 04/19/19 04:35 04/19/19 06:19 04/19/19 06:35 Temperature 97.8 F Pulse Rate 106 H 80 87 Respiratory Rate 22 25 H 24 Blood Pressure 111/64 Blood Pressure [Left Arm] 111/70 123/66 Pulse Oximetry 97 96 98 04/19/19 07:30 04/19/19 08:05 Temperature Pulse Rate 76 74 Respiratory Rate 21 16 Blood Pressure 122/63 Blood Pressure [Left Arm] 122/63 Pulse Oximetry 98 99 Oxygen Delivery Method Room Air Narrative Exam Narrative: Constitutional: NAD Neurologic: AOx3, no focal neurological deficits Head: NC, AT Eyes: PERRL, EOMI, mildly jaundiced Ears: external ears normal, no otorrhea, hard of hearing Nose: external nose normal, no rhinorrhea or epistaxis Throat: MMM, oropharynx w/o exudate Neck: no masses, lymphadenopathy Chest / Respiratory: equal chest rise, becomes easily dyspnea with conversation, nonproductive cough Heart / CV: S1S2, no murmur Abdomen / GI: round, moderately distended, mild mid abdominal tenderness with palpation, + BS : no suprapubic tenderness, no CVA Peripheral / Vascular: warm to touch, DP and PT pulses palpable, trace peripheral edema Musc: full ROM of upper and lower extremities, generalized weakness bilaterally Skin: no ecchymosis, pale in appearance Objective Labs Result Diagrams: 04/19/19 04:45 04/19/19 04:45 Labs: Laboratory Results - last 24 hr 04/19/19 04/19/19 04/19/19 04:45 04:45 04:45 WBC 29.9 H RBC 3.31 L Hgb 10.8 L Hct 33.1 L MCV 99.8 MCH 32.7 MCHC 32.8 RDW 12.7 Plt Count 366 Neut % (Auto) Not Reportable Lymph % (Auto) Not Reportable Mclean % (Auto) Not Reportable Eos % (Auto) Not Reportable Baso % (Auto) Not Reportable Lymph # (Auto) Not Reportable Mclean # (Auto) Not Reportable Baso # (Auto) Not Reportable Total Counted 100 Seg Neutrophils % 86.0 H Band Neutrophils % 2.0 L Lymphocytes % (Manual) 2.0 L Atypical Lymphs % 2.0 H Monocytes % (Manual) 7.0 Metamyelocytes % 1.0 H Neutrophils # (Manual) 62723 H RBC Morphology Normal morphology PT 19.0 H INR 1.6 H APTT 28 Sodium Potassium Chloride Carbon Dioxide BUN Creatinine Estimated GFR BUN/Creatinine Ratio Glucose Lactate Calcium Total Bilirubin AST ALT Alkaline Phosphatase Total Creatine Kinase < 20 L CK-MB (CK-2) TNP CK-MB (CK-2) Rel Index TNP Troponin I < 0.012 Total Protein Albumin Globulin Albumin/Globulin Ratio Lipase Procalcitonin Urine Color Urine Appearance Urine pH Ur Specific [place] Urine Protein Urine Glucose (UA) Urine Ketones Urine Occult Blood Urine Nitrate Urine Bilirubin Urine Urobilinogen Ur Leukocyte Esterase Urine RBC Urine WBC Ur Squamous Epith Cells Amorphous Sediment Urine Bacteria Urine Mucus Ur Culture Indicated? Chlamy pneumoniae PCR Adenovirus (PCR) B.parapertussis DNA PCR Coronavirus OC43 (PCR) Coronavirus HKU1 (PCR) Coronavirus 229E (PCR) Coronavirus NL63 (PCR) Human Metapneumovir PCR Influenza Type A (PCR) Influenza Type B (PCR) M. pneumoniae (PCR) Parainfluenza 1 (PCR) Parainfluenza 2 (PCR) Parainfluenza 3 (PCR) Parainfluenza 4 (PCR) RSV (PCR) Entero/Rhino (PCR) Blood Type Antibody Screen 04/19/19 04/19/19 04/19/19 04:45 04:45 04:45 WBC RBC Hgb Hct MCV MCH MCHC RDW Plt Count Neut % (Auto) Lymph % (Auto) Mclean % (Auto) Eos % (Auto) Baso % (Auto) Lymph # (Auto) Mclean # (Auto) Baso # (Auto) Total Counted Seg Neutrophils % Band Neutrophils % Lymphocytes % (Manual) Atypical Lymphs % Monocytes % (Manual) Metamyelocytes % Neutrophils # (Manual) RBC Morphology PT INR APTT Sodium 131 L Potassium 5.0 Chloride 99 Carbon Dioxide 17 L BUN 11 Creatinine 0.90 Estimated GFR > 60.0 BUN/Creatinine Ratio 12.2 Glucose 347 H Lactate 7.4 H* Calcium 8.5 Total Bilirubin 0.7 AST 31 ALT 29 Alkaline Phosphatase 166 H Total Creatine Kinase CK-MB (CK-2) CK-MB (CK-2) Rel Index Troponin I Total Protein 5.6 L Albumin 3.0 L Globulin 2.6 Albumin/Globulin Ratio 1.2 Lipase Procalcitonin 0.60 H Urine Color Urine Appearance Urine pH Ur Specific [place] Urine Protein Urine Glucose (UA) Urine Ketones Urine Occult Blood Urine Nitrate Urine Bilirubin Urine Urobilinogen Ur Leukocyte Esterase Urine RBC Urine WBC Ur Squamous Epith Cells Amorphous Sediment Urine Bacteria Urine Mucus Ur Culture Indicated? Chlamy pneumoniae PCR Adenovirus (PCR) B.parapertussis DNA PCR Coronavirus OC43 (PCR) Coronavirus HKU1 (PCR) Coronavirus 229E (PCR) Coronavirus NL63 (PCR) Human Metapneumovir PCR Influenza Type A (PCR) Influenza Type B (PCR) M. pneumoniae (PCR) Parainfluenza 1 (PCR) Parainfluenza 2 (PCR) Parainfluenza 3 (PCR) Parainfluenza 4 (PCR) RSV (PCR) Entero/Rhino (PCR) Blood Type Antibody Screen 04/19/19 04/19/19 04/19/19 04:45 05:55 05:55 WBC RBC Hgb Hct MCV MCH MCHC RDW Plt Count Neut % (Auto) Lymph % (Auto) Mclean % (Auto) Eos % (Auto) Baso % (Auto) Lymph # (Auto) Mclean # (Auto) Baso # (Auto) Total Counted Seg Neutrophils % Band Neutrophils % Lymphocytes % (Manual) Atypical Lymphs % Monocytes % (Manual) Metamyelocytes % Neutrophils # (Manual) RBC Morphology PT INR APTT Sodium Potassium Chloride Carbon Dioxide BUN Creatinine Estimated GFR BUN/Creatinine Ratio Glucose Lactate 6.4 H* Calcium Total Bilirubin AST ALT Alkaline Phosphatase Total Creatine Kinase CK-MB (CK-2) CK-MB (CK-2) Rel Index Troponin I Total Protein Albumin Globulin Albumin/Globulin Ratio Lipase 28 Procalcitonin Urine Color Urine Appearance Urine pH Ur Specific [place] Urine Protein Urine Glucose (UA) Urine Ketones Urine Occult Blood Urine Nitrate Urine Bilirubin Urine Urobilinogen Ur Leukocyte Esterase Urine RBC Urine WBC Ur Squamous Epith Cells Amorphous Sediment Urine Bacteria Urine Mucus Ur Culture Indicated? Chlamy pneumoniae PCR Adenovirus (PCR) B.parapertussis DNA PCR Coronavirus OC43 (PCR) Coronavirus HKU1 (PCR) Coronavirus 229E (PCR) Coronavirus NL63 (PCR) Human Metapneumovir PCR Influenza Type A (PCR) Influenza Type B (PCR) M. pneumoniae (PCR) Parainfluenza 1 (PCR) Parainfluenza 2 (PCR) Parainfluenza 3 (PCR) Parainfluenza 4 (PCR) RSV (PCR) Entero/Rhino (PCR) Blood Type A Positive Antibody Screen Negative 04/19/19 04/19/19 04/19/19 07:15 07:59 08:00 WBC RBC Hgb Hct MCV MCH MCHC RDW Plt Count Neut % (Auto) Lymph % (Auto) Mclean % (Auto) Eos % (Auto) Baso % (Auto) Lymph # (Auto) Mclean # (Auto) Baso # (Auto) Total Counted Seg Neutrophils % Band Neutrophils % Lymphocytes % (Manual) Atypical Lymphs % Monocytes % (Manual) Metamyelocytes % Neutrophils # (Manual) RBC Morphology PT INR APTT Sodium Potassium Chloride Carbon Dioxide BUN Creatinine Estimated GFR BUN/Creatinine Ratio Glucose Lactate 5.5 H* Calcium Total Bilirubin AST ALT Alkaline Phosphatase Total Creatine Kinase CK-MB (CK-2) CK-MB (CK-2) Rel Index Troponin I Total Protein Albumin Globulin Albumin/Globulin Ratio Lipase Procalcitonin Urine Color Yellow Urine Appearance Clear Urine pH 5.0 Ur Specific [place] <=1.005 Urine Protein Negative Urine Glucose (UA) Trace H Urine Ketones Trace H Urine Occult Blood Negative Urine Nitrate Negative Urine Bilirubin Negative Urine Urobilinogen 1.0 Ur Leukocyte Esterase Negative Urine RBC None seen Urine WBC 0-1/hpf Ur Squamous Epith Cells 0-1 /hpf Amorphous Sediment 1+ Urine Bacteria None seen Urine Mucus 1+ H Ur Culture Indicated? Cult not indicated Chlamy pneumoniae PCR Not detected Adenovirus (PCR) Not detected B.parapertussis DNA PCR Not detected Coronavirus OC43 (PCR) Not detected Coronavirus HKU1 (PCR) Not detected Coronavirus 229E (PCR) Not detected Coronavirus NL63 (PCR) Not detected Human Metapneumovir PCR Not detected Influenza Type A (PCR) Not detected Influenza Type B (PCR) Not detected M. pneumoniae (PCR) Not detected Parainfluenza 1 (PCR) Not detected Parainfluenza 2 (PCR) Not detected Parainfluenza 3 (PCR) Not detected Parainfluenza 4 (PCR) Not detected RSV (PCR) Not detected Entero/Rhino (PCR) Not detected Blood Type Antibody Screen Assessment & Plan Assessment & Plan narrative: Patient is admitted under observation status for treatment of sepsis. Septic, acute, present on admission, active - Leukocytosis + elevated lactate + perforated bowel, no hemodynamic decompensation - Infection secondary to progressive metastatic disease - Received LR bolus per sepsis protocol, continued on NS at 100 mls/hr - Started on Vancomycin and Zosyn - Blood cultures collected in ED, pending - Continue trending lactate Pancreatic cancer with metastasis to the liver, recently diagnosed with rapidly progressive course, present on admission, active - See CT of A/P - Consult General surgery to evaluate for perforation General surgery, Dr. Castellanos, has evaluated the imaging and seen the patient. Severely advanced neoplastic disease. Operative treatment was not recommended, as risks of the procedure outweigh the benefits. - Consult social work for hospice referral - Pending family's decision with plan of care, considering discharge home later in the day Diabetes mellitus type 2 w/ hyperglycemia, chronic condition, present on admission, active - DM 2T w/ hyperglycemia, diabetic control is not known - SSI protocol Hypertension, chronic condition, present on admission, active - continue trending BP - hold [employer] regimen of antihypertensive agents which include HCTZ and lisinopril Code status discussed with patient and his in detail. Patient is DNR. VTE prophylaxis with SCDs and SQ Heparin.
[2019-04-19] MEDS: SODIUM CHLORIDE 0.9% 1,000 ML 100 ML IV (10:19)
--- NOTE | 2019-04-19 11:12 | PC.NURSE ---
Day shift: Pt refused Jamison placement.
--- NOTE | 2019-04-19 11:56 | P.CONS_ITS ---
History of Present Illness Consult details Date Patient Seen: 04/19/19 Time Patient Seen: 12:18 Chief complaint: Coughing up blood Narrative: This is a 79-year-old male with widely metastatic likely pancreatic cancer who's admitted to the hospital with hemoptysis. Has a mass arising from the body of the pancreas that's eroded into the posterior aspect of his stomach with what looks to be a contained gastric perforation in addition to multiple liver metastases. On admission he was hemodynamically stable, WBC 30, hematocrit 33 lactic acid 7, normal bilirubin and LFTs. He has had no further hemoptysis and has minimal abdominal pain at this time. Apparently he is in the process of enrolling in hospice, he has seen Dr. Verduzco of Oncology and decided he wants no aggressive interventions including chemotherapy. [facility] Medical History Diabetes mellitus (Chronic) Essential hypertension (Chronic) 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 (Acute) Family History Father Cancer Social History household members: spouse Smoking Status: Never smoker Meds Home Medications and Allergies Home Medications Medication Instructions Recorded Confirmed Type hydrochlorothiazide 25 mg PO DAILY 04/03/19 04/03/19 History lisinopril 10 mg PO DAILY 04/03/19 04/03/19 History naproxen sodium [Aleve] 220 mg PO Q12H PRN 04/03/19 04/19/19 History vitamin B complex 1 tab PO DAILY 04/03/19 04/19/19 History levofloxacin 500 mg PO DAILY 04/19/19 04/19/19 History Allergies Allergy/AdvReac Type Severity Reaction Status Date / Time No Known Drug Allergies Allergy Verified 04/03/19 15:14 Review of Systems Review of Systems ROS Unobtainable: All systems reviewed & are unremarkable except as noted in HPI and below Exam Vital Signs (past 8 hours): - 04/19/19 04:35 04/19/19 06:19 04/19/19 06:35 Temperature 97.8 F Pulse Rate 106 H 80 87 Respiratory Rate 22 25 H 24 Blood Pressure 111/64 Blood Pressure [Left Arm] 111/70 123/66 Pulse Oximetry 97 96 98 04/19/19 07:30 04/19/19 08:05 04/19/19 08:20 Temperature 98.4 F Pulse Rate 76 74 80 Respiratory Rate 21 16 18 Blood Pressure 122/63 143/75 H Blood Pressure [Left Arm] 122/63 Pulse Oximetry 98 99 98 Oxygen Delivery Method Room Air Oxygen Flow Rate 0 Narrative Exam Narrative: General-no acute distress, malnourished male HEENT-moist mucous membranes, no scleral icterus Neck-supple, no lymphadenopathy Chest- non labored respirations, clear to auscultation bilaterally Cardiac-regular rate no peripheral edema Abdomen-soft, no peritonitis Extremities-warm, well perfused Neurological-alert and oriented, no focal deficits Objective Labs Result Diagrams: 04/19/19 04:45 04/19/19 04:45 Labs: Laboratory Results - last 24 hr 04/19/19 04/19/19 04/19/19 04:45 04:45 04:45 WBC 29.9 H RBC 3.31 L Hgb 10.8 L Hct 33.1 L MCV 99.8 MCH 32.7 MCHC 32.8 RDW 12.7 Plt Count 366 Neut % (Auto) Not Reportable Lymph % (Auto) Not Reportable [place] % (Auto) Not Reportable Eos % (Auto) Not Reportable Baso % (Auto) Not Reportable Lymph # (Auto) Not Reportable [place] # (Auto) Not Reportable Baso # (Auto) Not Reportable Total Counted 100 Seg Neutrophils % 86.0 H Band Neutrophils % 2.0 L Lymphocytes % (Manual) 2.0 L Atypical Lymphs % 2.0 H Monocytes % (Manual) 7.0 Metamyelocytes % 1.0 H Neutrophils # (Manual) 36729 H RBC Morphology Normal morphology PT 19.0 H INR 1.6 H APTT 28 Sodium Potassium Chloride Carbon Dioxide BUN Creatinine Estimated GFR BUN/Creatinine Ratio Glucose Lactate Calcium Total Bilirubin AST ALT Alkaline Phosphatase Total Creatine Kinase < 20 L CK-MB (CK-2) TNP CK-MB (CK-2) Rel Index TNP Troponin I < 0.012 Total Protein Albumin Globulin Albumin/Globulin Ratio Lipase Procalcitonin Urine Color Urine Appearance Urine pH Ur Specific [place] Urine Protein Urine Glucose (UA) Urine Ketones Urine Occult Blood Urine Nitrate Urine Bilirubin Urine Urobilinogen Ur Leukocyte Esterase Urine RBC Urine WBC Ur Squamous Epith Cells Amorphous Sediment Urine Bacteria Urine Mucus Ur Culture Indicated? Chlamy pneumoniae PCR Adenovirus (PCR) B.parapertussis DNA PCR Coronavirus OC43 (PCR) Coronavirus HKU1 (PCR) Coronavirus 229E (PCR) Coronavirus NL63 (PCR) Human Metapneumovir PCR Influenza Type A (PCR) Influenza Type B (PCR) M. pneumoniae (PCR) Parainfluenza 1 (PCR) Parainfluenza 2 (PCR) Parainfluenza 3 (PCR) Parainfluenza 4 (PCR) RSV (PCR) Entero/Rhino (PCR) Blood Type Antibody Screen 04/19/19 04/19/19 04/19/19 04:45 04:45 04:45 WBC RBC Hgb Hct MCV MCH MCHC RDW Plt Count Neut % (Auto) Lymph % (Auto) [place] % (Auto) Eos % (Auto) Baso % (Auto) Lymph # (Auto) [place] # (Auto) Baso # (Auto) Total Counted Seg Neutrophils % Band Neutrophils % Lymphocytes % (Manual) Atypical Lymphs % Monocytes % (Manual) Metamyelocytes % Neutrophils # (Manual) RBC Morphology PT INR APTT Sodium 131 L Potassium 5.0 Chloride 99 Carbon Dioxide 17 L BUN 11 Creatinine 0.90 Estimated GFR > 60.0 BUN/Creatinine Ratio 12.2 Glucose 347 H Lactate 7.4 H* Calcium 8.5 Total Bilirubin 0.7 AST 31 ALT 29 Alkaline Phosphatase 166 H Total Creatine Kinase CK-MB (CK-2) CK-MB (CK-2) Rel Index Troponin I Total Protein 5.6 L Albumin 3.0 L Globulin 2.6 Albumin/Globulin Ratio 1.2 Lipase Procalcitonin 0.60 H Urine Color Urine Appearance Urine pH Ur Specific [place] Urine Protein Urine Glucose (UA) Urine Ketones Urine Occult Blood Urine Nitrate Urine Bilirubin Urine Urobilinogen Ur Leukocyte Esterase Urine RBC Urine WBC Ur Squamous Epith Cells Amorphous Sediment Urine Bacteria Urine Mucus Ur Culture Indicated? Chlamy pneumoniae PCR Adenovirus (PCR) B.parapertussis DNA PCR Coronavirus OC43 (PCR) Coronavirus HKU1 (PCR) Coronavirus 229E (PCR) Coronavirus NL63 (PCR) Human Metapneumovir PCR Influenza Type A (PCR) Influenza Type B (PCR) M. pneumoniae (PCR) Parainfluenza 1 (PCR) Parainfluenza 2 (PCR) Parainfluenza 3 (PCR) Parainfluenza 4 (PCR) RSV (PCR) Entero/Rhino (PCR) Blood Type Antibody Screen 04/19/19 04/19/19 04/19/19 04:45 05:55 05:55 WBC RBC Hgb Hct MCV MCH MCHC RDW Plt Count Neut % (Auto) Lymph % (Auto) [place] % (Auto) Eos % (Auto) Baso % (Auto) Lymph # (Auto) [place] # (Auto) Baso # (Auto) Total Counted Seg Neutrophils % Band Neutrophils % Lymphocytes % (Manual) Atypical Lymphs % Monocytes % (Manual) Metamyelocytes % Neutrophils # (Manual) RBC Morphology PT INR APTT Sodium Potassium Chloride Carbon Dioxide BUN Creatinine Estimated GFR BUN/Creatinine Ratio Glucose Lactate 6.4 H* Calcium Total Bilirubin AST ALT Alkaline Phosphatase Total Creatine Kinase CK-MB (CK-2) CK-MB (CK-2) Rel Index Troponin I Total Protein Albumin Globulin Albumin/Globulin Ratio Lipase 28 Procalcitonin Urine Color Urine Appearance Urine pH Ur Specific [place] Urine Protein Urine Glucose (UA) Urine Ketones Urine Occult Blood Urine Nitrate Urine Bilirubin Urine Urobilinogen Ur Leukocyte Esterase Urine RBC Urine WBC Ur Squamous Epith Cells Amorphous Sediment Urine Bacteria Urine Mucus Ur Culture Indicated? Chlamy pneumoniae PCR Adenovirus (PCR) B.parapertussis DNA PCR Coronavirus OC43 (PCR) Coronavirus HKU1 (PCR) Coronavirus 229E (PCR) Coronavirus NL63 (PCR) Human Metapneumovir PCR Influenza Type A (PCR) Influenza Type B (PCR) M. pneumoniae (PCR) Parainfluenza 1 (PCR) Parainfluenza 2 (PCR) Parainfluenza 3 (PCR) Parainfluenza 4 (PCR) RSV (PCR) Entero/Rhino (PCR) Blood Type A Positive Antibody Screen Negative 04/19/19 04/19/19 04/19/19 07:15 07:59 08:00 WBC RBC Hgb Hct MCV MCH MCHC RDW Plt Count Neut % (Auto) Lymph % (Auto) [place] % (Auto) Eos % (Auto) Baso % (Auto) Lymph # (Auto) [place] # (Auto) Baso # (Auto) Total Counted Seg Neutrophils % Band Neutrophils % Lymphocytes % (Manual) Atypical Lymphs % Monocytes % (Manual) Metamyelocytes % Neutrophils # (Manual) RBC Morphology PT INR APTT Sodium Potassium Chloride Carbon Dioxide BUN Creatinine Estimated GFR BUN/Creatinine Ratio Glucose Lactate 5.5 H* Calcium Total Bilirubin AST ALT Alkaline Phosphatase Total Creatine Kinase CK-MB (CK-2) CK-MB (CK-2) Rel Index Troponin I Total Protein Albumin Globulin Albumin/Globulin Ratio Lipase Procalcitonin Urine Color Yellow Urine Appearance Clear Urine pH 5.0 Ur Specific [place] <=1.005 Urine Protein Negative Urine Glucose (UA) Trace H Urine Ketones Trace H Urine Occult Blood Negative Urine Nitrate Negative Urine Bilirubin Negative Urine Urobilinogen 1.0 Ur Leukocyte Esterase Negative Urine RBC None seen Urine WBC 0-1/hpf Ur Squamous Epith Cells 0-1 /hpf Amorphous Sediment 1+ Urine Bacteria None seen Urine Mucus 1+ H Ur Culture Indicated? Cult not indicated Chlamy pneumoniae PCR Not detected Adenovirus (PCR) Not detected B.parapertussis DNA PCR Not detected Coronavirus OC43 (PCR) Not detected Coronavirus HKU1 (PCR) Not detected Coronavirus 229E (PCR) Not detected Coronavirus NL63 (PCR) Not detected Human Metapneumovir PCR Not detected Influenza Type A (PCR) Not detected Influenza Type B (PCR) Not detected M. pneumoniae (PCR) Not detected Parainfluenza 1 (PCR) Not detected Parainfluenza 2 (PCR) Not detected Parainfluenza 3 (PCR) Not detected Parainfluenza 4 (PCR) Not detected RSV (PCR) Not detected Entero/Rhino (PCR) Not detected Blood Type Antibody Screen Assessment & Plan Assessment & Plan narrative: This 79-year-old male with likely metastatic pancreatic cancer and a contained gastric perforation. Is admitted to the hospital because he developed hemoptysis and is found to have white count of 29, abdominal pain and a CT that demonstrates a large pancreatic body mass with extension into the posterior aspect of his stomach. Gastric perforation is retroperitoneal and appears to be contained as there is no evidence of of free air. The gastric component appears to involve the right gastric artery. he is hemodynamically stable at this time. There are no viable surgical options. I discussed this with the patient as well as his in detail. His most reasonable option is hospice at this time. The patient and his family are in agreement with and want no aggressive intervention.
--- NOTE | 2019-04-19 12:26 | P.CONONC_ITS ---
History of Present Illness - Data of Consult Consult date: 04/19/19 - Consult Narrative Narrative: Nathan Schafer is a 79 year old male who I saw once before in clinic in early April. He presented with anorexia and weight loss. He had a ct scan showing a pancreatic mass with liver metastasis. The mass abutted the gastric wall. At that time, he did not have much pain. He did not want to pursue active treatment for his cancer or biopsy. He was interested in follow up to assess the speed of his cancer. In the meantime, he was seen by hospice but did not enroll yet. He had symptoms of a URI with cough and sinus congestion over the last few days. He then had an episode of hemoptysis and came to the hospital. CT shows increase in the size of his pancreatic mass. There was an increase in the size and number of his liver lesions. There is a new mass next to the st omach and free air suggesting perforation with abscess or hematoma. Interestingly, he does not have fever, nausea, vomiting or abdominal pain. He still is not interested in palliative chemotherapy, although I don't think he would be a candidate currently anyway. He is anxious to go home with hospice. CC: AURY Doty Home Medications and Allergies Home Medications Medication Instructions Recorded Confirmed Type hydrochlorothiazide 25 mg PO DAILY 04/03/19 04/03/19 History lisinopril 10 mg PO DAILY 04/03/19 04/03/19 History naproxen sodium [Aleve] 220 mg PO Q12H PRN 04/03/19 04/19/19 History vitamin B complex 1 tab PO DAILY 04/03/19 04/19/19 History levofloxacin 500 mg PO DAILY 04/19/19 04/19/19 History Allergies Allergy/AdvReac Type Severity Reaction Status Date / Time No Known Drug Allergies Allergy Verified 04/03/19 15:14 Medical History - Medical, Surgical, Family History Medical History: Medical History (Last Reviewed 04/19/19 @ 11:56 by Frandy Castellanos MD) Diabetes mellitus Essential hypertension 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 Family History: Family History (Last Reviewed 04/19/19 @ 11:56 by Frandy Castellanos MD) Father Cancer - Social History Smoking Status: Never smoker Exam Vital signs: Vital Signs Temp Pulse Resp BP BP Pulse Ox 04/19/19 11:00 99.4 F 83 20 123/68 97 04/19/19 08:20 98.4 F 80 18 143/75 H 98 04/19/19 08:05 74 16 122/63 99 04/19/19 07:30 76 21 122/63 98 04/19/19 06:35 87 24 123/66 98 04/19/19 06:19 80 25 H 111/70 96 04/19/19 04:35 97.8 F 106 H 22 111/64 97 Intake and Output 04/18/19 04/19/19 04/19/19 23:59 07:59 15:59 Intake Total 1050 / 2844.303 1794.303 / 2844.303 Output Total 400 / 400 Balance 1050 / 2444.303 1394.303 / 2444.303 Intake: IV 50 / 4330.504 4657.303 / 1844.303 Lactated Ringers 3,401.94 ml @ 1700.97 / 1700.97 1133.98 mls/hr IV NOW ONE Rx#: [id number] Piperacillin-Tazo 3.375 gm In 50 / 50 50 ml @ 100 mls/hr IV NOW ONE Rx#:[id number] Vancomycin 1,500 mg In 300 ml @ 93.333 / 93.333 200 mls/hr IV NOW ONE Rx#: [id number] Pre Hospital IV Fluids Infused 1000 / 1000 Right Antecubital 1000 / 1000 Output: Urine 100 / 100 Urine Amount (Catheter) 300 / 300 Other: Percent Meal Consumed Refused lunch Weight 113.398 kg 113.398 kg Patient Weight 04/19/19 23:59 Weight 113.398 kg Results - Labs Laboratory Last Values WBC 29.9 X10^3/uL (4.5-11.0) H 04/19/19 04:45 RBC 3.31 X10^6/uL (4.5-5.9) L 04/19/19 04:45 Hgb 10.8 g/dL (13.5-17.5) L 04/19/19 04:45 Hct 33.1 % (41-53) L 04/19/19 04:45 MCV 99.8 fL (80-100) 04/19/19 04:45 MCH 32.7 PG (26-34) 04/19/19 04:45 MCHC 32.8 % (30-36) 04/19/19 04:45 RDW 12.7 % (11.6-14.8) 04/19/19 04:45 Plt Count 366 X10^3/uL (150-400) 04/19/19 04:45 Neut % (Auto) Not Reportable 04/19/19 04:45 Lymph % (Auto) Not Reportable 04/19/19 04:45 [place] % (Auto) Not Reportable 04/19/19 04:45 Eos % (Auto) Not Reportable 04/19/19 04:45 Baso % (Auto) Not Reportable 04/19/19 04:45 Lymph # (Auto) Not Reportable 04/19/19 04:45 [place] # (Auto) Not Reportable 04/19/19 04:45 Baso # (Auto) Not Reportable 04/19/19 04:45 Total Counted 100 04/19/19 04:45 Seg Neutrophils % 86.0 % (38-70) H 04/19/19 04:45 Band Neutrophils % 2.0 % (3-7) L 04/19/19 04:45 Lymphocytes % (Manual) 2.0 % (25-45) L 04/19/19 04:45 Atypical Lymphs % 2.0 % (-0) H 04/19/19 04:45 Monocytes % (Manual) 7.0 % (2-11) 04/19/19 04:45 Metamyelocytes % 1.0 % (-0) H 04/19/19 04:45 Neutrophils # (Manual) 27298 /uL (5291-2335) H 04/19/19 04:45 RBC Morphology Normal morphology 04/19/19 04:45 PT 19.0 SECONDS (10.1-12.7) H 04/19/19 04:45 INR 1.6 (0.9-1.3) H 04/19/19 04:45 APTT 28 SECONDS (26.4-36.2) 04/19/19 04:45 Sodium 131 mmol/L (137-145) L 04/19/19 04:45 Potassium 5.0 mmol/L (3.4-5.1) 04/19/19 04:45 Chloride 99 mmol/L (98-107) 04/19/19 04:45 Carbon Dioxide 17 mmol/L (22-32) L 04/19/19 04:45 BUN 11 mg/dL (9-20) 04/19/19 04:45 Creatinine 0.90 mg/dL (0.66-1.25) 04/19/19 04:45 Estimated GFR > 60.0 mL/min (>60) 04/19/19 04:45 BUN/Creatinine Ratio 12.2 (6-22) 04/19/19 04:45 Glucose 347 mg/dL (80-110) H 04/19/19 04:45 Lactate 5.5 mmol/L (0.7-2.1) H* 04/19/19 07:59 Calcium 8.5 mg/dL (8.4-10.2) 04/19/19 04:45 Total Bilirubin 0.7 mg/dL (0.2-1.3) 04/19/19 04:45 AST 31 IU/L (17-59) 04/19/19 04:45 ALT 29 IU/L (<50) 04/19/19 04:45 Alkaline Phosphatase 166 U/L (38-126) H 04/19/19 04:45 Total Creatine Kinase < 20 U/L (55-170) L 04/19/19 04:45 CK-MB (CK-2) TNP 04/19/19 04:45 CK-MB (CK-2) Rel Index TNP 04/19/19 04:45 Troponin I < 0.012 ng/mL (0.01-0.034) 04/19/19 04:45 Total Protein 5.6 g/dL (6.3-8.2) L 04/19/19 04:45 Albumin 3.0 g/dL (3.5-5.0) L 04/19/19 04:45 Globulin 2.6 g/dL (1.7-4.1) 04/19/19 04:45 Albumin/Globulin Ratio 1.2 (1.0-2.8) 04/19/19 04:45 Lipase 28 U/L (23-300) 04/19/19 04:45 Procalcitonin 0.60 ng/mL (<0.5) H 04/19/19 04:45 Urine Color Yellow 04/19/19 08:00 Urine Appearance Clear 04/19/19 08:00 Urine pH 5.0 (4.5-8.0) 04/19/19 08:00 Ur Specific [place] <=1.005 (1.000-1.035) 04/19/19 08:00 Urine Protein Negative (Negative) 04/19/19 08:00 Urine Glucose (UA) Trace g/dL (Negative) H 04/19/19 08:00 Urine Ketones Trace (NEGATIVE) H 04/19/19 08:00 Urine Occult Blood Negative (Negative) 04/19/19 08:00 Urine Nitrate Negative (Negative) 04/19/19 08:00 Urine Bilirubin Negative (NEGATIVE) 04/19/19 08:00 Urine Urobilinogen 1.0 E.U./dL (0.2) 04/19/19 08:00 Ur Leukocyte Esterase Negative (NEGATIVE) 04/19/19 08:00 Urine RBC None seen (0-5/HPF) 04/19/19 08:00 Urine WBC 0-1/hpf (0-5/HPF) 04/19/19 08:00 Ur Squamous Epith Cells 0-1 /hpf (0-5/HPF) 04/19/19 08:00 Amorphous Sediment 1+ 04/19/19 08:00 Urine Bacteria None seen (None) 04/19/19 08:00 Urine Mucus 1+ (Negative) H 04/19/19 08:00 Ur Culture Indicated? Cult not indicated 04/19/19 08:00 Chlamy pneumoniae PCR Not detected (Not Detect) 04/19/19 07:15 Adenovirus (PCR) Not detected (Not Detect) 04/19/19 07:15 B.parapertussis DNA PCR Not detected (Not Detect) 04/19/19 07:15 Coronavirus OC43 (PCR) Not detected (Not Detect) 04/19/19 07:15 Coronavirus HKU1 (PCR) Not detected (Not Detect) 04/19/19 07:15 Coronavirus 229E (PCR) Not detected (Not Detect) 04/19/19 07:15 Coronavirus NL63 (PCR) Not detected (Not Detect) 04/19/19 07:15 Human Metapneumovir PCR Not detected (Not Detect) 04/19/19 07:15 Influenza Type A (PCR) Not detected (Not Detect) 04/19/19 07:15 Influenza Type B (PCR) Not detected (Not Detect) 04/19/19 07:15 M. pneumoniae (PCR) Not detected (Not Detect) 04/19/19 07:15 Parainfluenza 1 (PCR) Not detected (Not Detect) 04/19/19 07:15 Parainfluenza 2 (PCR) Not detected (Not Detect) 04/19/19 07:15 Parainfluenza 3 (PCR) Not detected (Not Detect) 04/19/19 07:15 Parainfluenza 4 (PCR) Not detected (Not Detect) 04/19/19 07:15 RSV (PCR) Not detected (Not Detect) 04/19/19 07:15 Entero/Rhino (PCR) Not detected (Not Detect) 04/19/19 07:15 Blood Type A Positive 04/19/19 05:55 Antibody Screen Negative 04/19/19 05:55 - Imaging Additional studies: Procedures Replacement of Left Hip Joint with Synthetic Substitute, Uncemented, Open Approach (05/19/15) Reposition Left Femoral Shaft with Internal Fixation Device, Open Approach (05/19/15)
--- NOTE | 2019-04-19 12:56 | P.DS_ITS ---
History of Present Illness History of Present Illness Date Patient Seen: 04/19/19 Chief complaint: Coughing up blood Narrative: Written by Rolf JEFFERS: The patient is a 79-year-old male with PMH of HTN, DM 2T, pancreatic mass (new dx), alcohol use (1/2 bottle of wine daily) Patient present to the ED on 04/19/2019 out of concern for hemoptysis. Symptoms initially noted w/in 24 hours of ED presentation. In reports approximately half a cup of bloody contents. Associated symptoms include a 10 day history of cough with yellow to green purulence, chills, generalized fatigue, diminished appetite and weight loss. He denies abdominal pain, nausea, and vomiting. Recently started having mild mid-lower back pain, fairly controlled. Patient has recently diagnosed with pancreatic mass with suspected metastasis to lung and/or liver. He has not had a biopsy for definitive confirmation. Patient was last seen by his oncologist, Dr. Verduzco, on 04/03/2019 with an in- depth discussion of his options. At that time patient opted out not to pursue a diagnostic biopsy and chemotherapy. Consequently, he was referred to hospice which he has seen in the past week; however, was reluctant to sign up with hospice with a desire to follow-up with his oncologist more time. As he was told that he cannot be on hospice and follow-up with oncology at the same time. On initial presentation to the ED patient was noted to have significant lab abnormalities. Specifically, leukocytosis and lactate of 7.4. CTA of the chest and CT of abdomen and pelvis was obtained (see below). Imaging showed a large 7.4 x 5.8 cm mass arising from the pancreatic body/tail (increased in size from previous), which is now eroding into the posterior wall of the stomach creating a perforation. Overall there is significant progression of the disease. ED Presentation & Work-Up VSS. WBC 29.9 Lactate 7.4 -> 6.4 -> 5.5 PCT 0.6 RVP negative Hgb 10.8 Plt 366 Na 131 K 5.0 Cl 99 Ca 8.5 Alb 3.0 Glu 347 CO2 17 BUN 11 Cr 0.9 T.Bili AST 31 ALT 29 Alk Phos 166 CK < 20 UA trace ketones and glucose CTA of Chest No evidence for pulmonary embolism. Multiple cavitary nodules in lungs bilaterally. In this patient with pancreatic mass metastatic disease is the most likely diagnosis. Other diagnostic considerations include TB or fungal infections and inflammatory nodules (Olegario's granulomatosis). Bibasilar infiltrate suspicious for pneumonia. Sub-pleural septal thickening consistent with chronic interstitial lung disease. Aberrant right subclavian artery. Multiple low density nodules in liver are suspicious for liver metastases. Please see the abdominal CT report for detailed. A mass in stomach. Please see abdominal CT report for detail. CT of A/P CT of A/P revealed a large 7.4 by 5.9 cm mass arising from the pancreatic body / tail, increased in size (compared to 03/20/19). The mass is seen eroding into the posterior wall of the stomach. There's a defect along the posterior wall of the stomach with extra luminal air suspicious for stomach perforation. There is partial encroachment of superior mesenteric artery and vein, and encasement of splenic artery and veins, as well as the left gastric artery by the large mass. A large mass is seen within the stomach involving the the fundus and the greater curvature of the stomach measuring 7.2 x 10.9 cm. This mass is new since the last exam. This might be likely a large hematoma but endoscopy is suggested for further evaluation. Multiple hepatic lesions are consistent with liver metastases. Liver lesions are increased in number and size since the last exam. In ED patient was treated with LR bolus per sepsis protocol. And started on vancomycin and Zosyn. Discharge Providers Provider Date of admission: 04/19/19 07:37 Discharge Date: 04/20/19 Consults: 04/19/19 04:42 Consult to Respiratory Therapy Evaluate & Treat Comment: Physician Instructions: Evaluate and treat 04/19/19 08:18 [place] [facility] [place] Rout[place] Comment: advanced pancreatic cancer [facility] [place]: End of Life/Goal Care Dis 04/19/19 09:02 Consult to General Surgery Routine Comment: Consulting Provider: Frandy Castellanos Reason for consultation: perforated stomach Has provider been notified: Yes 04/19/19 09:06 Consult to Oncology Routine Comment: Consulting Provider: Lenin Verduzco Reason for consultation: metastatic pancreatic cancer Has provider been notified: Yes 04/19/19 09:08 Consult to Dietitian, Adult Routine Comment: Reason For Exam: Poor diet for 2 weeks 04/19/19 12:26 Consult to Home Health Routine Comment: Reason For Exam: Home Health RN/SOFTWARE QUALITY ASSURANCE SPECIALIST Upon DC Discharge provider: Tana De Leon DO Summary Hospital Course Discharge Diagnosis: 1. Acute sepsis, present on admission. Active. 2. Pancreatic cancer with metastasis to the liver and now eroding into stomach with contained gastric perforation, recently diagnosed with rapidly progressive course, present on admission. Active. 3. Probable pneumonia, present on admission. Active. 4. Diabetes mellitus type II, non-insulin using, present on admission. Presumed stable. 5. Hypertension, chronic, present on admission. Stable. Hospital Course: Nathan Schafer is a 79-year-old male with a past medical history significant for hypertension, diabetes mellitus type 2, non-insulin using, diet controlled, newly diagnosed pancreatic mass with liver metastases, alcohol dependence who presented to the ED out of concern for hemoptysis. 1. Acute sepsis, present on admission. Active. -Leukocytosis + elevated lactate + perforated bowel and probable pneumonia. No hemodynamic decompensation. -Infection secondary to progressive metastatic disease and probable pneumonia. -Received LR bolus per sepsis protocol and continued on NS at 100 mls/hr. -Started on Vancomycin and Zosyn which were discontinued as the patient was discharged home on comfort and end of life care. -Blood cultures collected in ED, pending. -Continued to trend lactate which was improving with IVF. 2. Pancreatic cancer with metastasis to the liver and now eroding into stomach with contained gastric perforation, recently diagnosed with rapidly progressive course, present on admission. Active. -See CT of A/P -Consulted General surgery, Dr. Castellanos, who evaluated for gastric perforation and due to severely advanced neoplastic disease operative treatment was not recommended, as risks of the procedure outweigh the benefits. -Consulted social work for hospice referral. Discussed case with hospice physician who are making their best efforts to expedite opening, however, patient may not be able to open with hospice until Tuesday04/22/2019. -discharged home on comfort and end of life care. Provided comfort care medications including morphine concentrate 5 mg every 4 hours as needed for pain or air hunger, lorazepam concentrate 0.5 mg every 6 hours as needed for anxiety or agitation, acetaminophen 650 mg as needed for fever, scopolamine patch as needed for excessive secretions, ondansetron 4 mg as needed for nausea. 3. Probable pneumonia, present on admission. Active. -Patient endorses productive cough. -CT chest demonstrated bibasilar infiltrates. -Started on vancomycin and Zosyn which were discontinued as the patient was discharged home on comfort and end of life care. 4. Diabetes mellitus type II, non-insulin using, present on admission. Presumed stable. -Diabetic control is not known and patient is diet controlled. -Continued low-dose correctional scale insulin. -Continued regular diet as tolerated for comfort. 5. Hypertension, chronic, present on admission. Stable. -Continued to trend BP. -Discontinued antihypertensive agents which include HCTZ and lisinopril as patient is comfort care only. Exam Vital Signs (past 8 hours): - 04/19/19 06:19 04/19/19 06:35 04/19/19 07:30 Temperature Pulse Rate 80 87 76 Respiratory Rate 25 H 24 21 Blood Pressure Blood Pressure [Left Arm] 111/70 123/66 122/63 Pulse Oximetry 96 98 98 04/19/19 08:05 04/19/19 08:20 04/19/19 11:00 Temperature 98.4 F 99.4 F Pulse Rate 74 80 83 Respiratory Rate 16 18 20 Blood Pressure 122/63 143/75 H 123/68 Blood Pressure [Left Arm] Pulse Oximetry 99 98 97 Oxygen Delivery Method Room Air Oxygen Flow Rate 0 Narrative Exam Narrative: General: Older gentleman lying in bed comfortably and in no acute distress, emaciated and chronically ill-appearing, appropriately interactive HEENT: Normocephalic, atraumatic. External ears without defect. Pupils equal, round, and reactive to light. Anicteric sclerae, moist conjunctivae, and no lid lag. Oropharynx free of erythema and cobble stoning with moist mucosa. Neck: Supple with full range of motion. Extremities: No clubbing, cyanosis, or edema. Skin: Mild jaundice Normal temperature, turgor, and texture; no rash, ulcers, or subcutaneous nodules appreciated. Neurological: Cranial nerves grossly intact. Psychiatric: Normal mood and affect. Alert and oriented to person, place, and time. Objective Labs Result Diagrams: 04/19/19 04:45 04/19/19 04:45 Labs: Laboratory Results - last 24 hr 04/19/19 04/19/19 04/19/19 04:45 04:45 04:45 WBC 29.9 H RBC 3.31 L Hgb 10.8 L Hct 33.1 L MCV 99.8 MCH 32.7 MCHC 32.8 RDW 12.7 Plt Count 366 Neut % (Auto) Not Reportable Lymph % (Auto) Not Reportable [place] % (Auto) Not Reportable Eos % (Auto) Not Reportable Baso % (Auto) Not Reportable Lymph # (Auto) Not Reportable [place] # (Auto) Not Reportable Baso # (Auto) Not Reportable Total Counted 100 Seg Neutrophils % 86.0 H Band Neutrophils % 2.0 L Lymphocytes % (Manual) 2.0 L Atypical Lymphs % 2.0 H Monocytes % (Manual) 7.0 Metamyelocytes % 1.0 H Neutrophils # (Manual) 66921 H RBC Morphology Normal morphology PT 19.0 H INR 1.6 H APTT 28 Sodium Potassium Chloride Carbon Dioxide BUN Creatinine Estimated GFR BUN/Creatinine Ratio Glucose Lactate Calcium Total Bilirubin AST ALT Alkaline Phosphatase Total Creatine Kinase < 20 L CK-MB (CK-2) TNP CK-MB (CK-2) Rel Index TNP Troponin I < 0.012 Total Protein Albumin Globulin Albumin/Globulin Ratio Lipase Procalcitonin Urine Color Urine Appearance Urine pH Ur Specific [place] Urine Protein Urine Glucose (UA) Urine Ketones Urine Occult Blood Urine Nitrate Urine Bilirubin Urine Urobilinogen Ur Leukocyte Esterase Urine RBC Urine WBC Ur Squamous Epith Cells Amorphous Sediment Urine Bacteria Urine Mucus Ur Culture Indicated? Chlamy pneumoniae PCR Adenovirus (PCR) B.parapertussis DNA PCR Coronavirus OC43 (PCR) Coronavirus HKU1 (PCR) Coronavirus 229E (PCR) Coronavirus NL63 (PCR) Human Metapneumovir PCR Influenza Type A (PCR) Influenza Type B (PCR) M. pneumoniae (PCR) Parainfluenza 1 (PCR) Parainfluenza 2 (PCR) Parainfluenza 3 (PCR) Parainfluenza 4 (PCR) RSV (PCR) Entero/Rhino (PCR) Blood Type Antibody Screen 04/19/19 04/19/19 04/19/19 04:45 04:45 04:45 WBC RBC Hgb Hct MCV MCH MCHC RDW Plt Count Neut % (Auto) Lymph % (Auto) [place] % (Auto) Eos % (Auto) Baso % (Auto) Lymph # (Auto) [place] # (Auto) Baso # (Auto) Total Counted Seg Neutrophils % Band Neutrophils % Lymphocytes % (Manual) Atypical Lymphs % Monocytes % (Manual) Metamyelocytes % Neutrophils # (Manual) RBC Morphology PT INR APTT Sodium 131 L Potassium 5.0 Chloride 99 Carbon Dioxide 17 L BUN 11 Creatinine 0.90 Estimated GFR > 60.0 BUN/Creatinine Ratio 12.2 Glucose 347 H Lactate 7.4 H* Calcium 8.5 Total Bilirubin 0.7 AST 31 ALT 29 Alkaline Phosphatase 166 H Total Creatine Kinase CK-MB (CK-2) CK-MB (CK-2) Rel Index Troponin I Total Protein 5.6 L Albumin 3.0 L Globulin 2.6 Albumin/Globulin Ratio 1.2 Lipase Procalcitonin 0.60 H Urine Color Urine Appearance Urine pH Ur Specific [place] Urine Protein Urine Glucose (UA) Urine Ketones Urine Occult Blood Urine Nitrate Urine Bilirubin Urine Urobilinogen Ur Leukocyte Esterase Urine RBC Urine WBC Ur Squamous Epith Cells Amorphous Sediment Urine Bacteria Urine Mucus Ur Culture Indicated? Chlamy pneumoniae PCR Adenovirus (PCR) B.parapertussis DNA PCR Coronavirus OC43 (PCR) Coronavirus HKU1 (PCR) Coronavirus 229E (PCR) Coronavirus NL63 (PCR) Human Metapneumovir PCR Influenza Type A (PCR) Influenza Type B (PCR) M. pneumoniae (PCR) Parainfluenza 1 (PCR) Parainfluenza 2 (PCR) Parainfluenza 3 (PCR) Parainfluenza 4 (PCR) RSV (PCR) Entero/Rhino (PCR) Blood Type Antibody Screen 04/19/19 04/19/19 04/19/19 04:45 05:55 05:55 WBC RBC Hgb Hct MCV MCH MCHC RDW Plt Count Neut % (Auto) Lymph % (Auto) [place] % (Auto) Eos % (Auto) Baso % (Auto) Lymph # (Auto) [place] # (Auto) Baso # (Auto) Total Counted Seg Neutrophils % Band Neutrophils % Lymphocytes % (Manual) Atypical Lymphs % Monocytes % (Manual) Metamyelocytes % Neutrophils # (Manual) RBC Morphology PT INR APTT Sodium Potassium Chloride Carbon Dioxide BUN Creatinine Estimated GFR BUN/Creatinine Ratio Glucose Lactate 6.4 H* Calcium Total Bilirubin AST ALT Alkaline Phosphatase Total Creatine Kinase CK-MB (CK-2) CK-MB (CK-2) Rel Index Troponin I Total Protein Albumin Globulin Albumin/Globulin Ratio Lipase 28 Procalcitonin Urine Color Urine Appearance Urine pH Ur Specific [place] Urine Protein Urine Glucose (UA) Urine Ketones Urine Occult Blood Urine Nitrate Urine Bilirubin Urine Urobilinogen Ur Leukocyte Esterase Urine RBC Urine WBC Ur Squamous Epith Cells Amorphous Sediment Urine Bacteria Urine Mucus Ur Culture Indicated? Chlamy pneumoniae PCR Adenovirus (PCR) B.parapertussis DNA PCR Coronavirus OC43 (PCR) Coronavirus HKU1 (PCR) Coronavirus 229E (PCR) Coronavirus NL63 (PCR) Human Metapneumovir PCR Influenza Type A (PCR) Influenza Type B (PCR) M. pneumoniae (PCR) Parainfluenza 1 (PCR) Parainfluenza 2 (PCR) Parainfluenza 3 (PCR) Parainfluenza 4 (PCR) RSV (PCR) Entero/Rhino (PCR) Blood Type A Positive Antibody Screen Negative 04/19/19 04/19/19 04/19/19 07:15 07:59 08:00 WBC RBC Hgb Hct MCV MCH MCHC RDW Plt Count Neut % (Auto) Lymph % (Auto) [place] % (Auto) Eos % (Auto) Baso % (Auto) Lymph # (Auto) [place] # (Auto) Baso # (Auto) Total Counted Seg Neutrophils % Band Neutrophils % Lymphocytes % (Manual) Atypical Lymphs % Monocytes % (Manual) Metamyelocytes % Neutrophils # (Manual) RBC Morphology PT INR APTT Sodium Potassium Chloride Carbon Dioxide BUN Creatinine Estimated GFR BUN/Creatinine Ratio Glucose Lactate 5.5 H* Calcium Total Bilirubin AST ALT Alkaline Phosphatase Total Creatine Kinase CK-MB (CK-2) CK-MB (CK-2) Rel Index Troponin I Total Protein Albumin Globulin Albumin/Globulin Ratio Lipase Procalcitonin Urine Color Yellow Urine Appearance Clear Urine pH 5.0 Ur Specific [place] <=1.005 Urine Protein Negative Urine Glucose (UA) Trace H Urine Ketones Trace H Urine Occult Blood Negative Urine Nitrate Negative Urine Bilirubin Negative Urine Urobilinogen 1.0 Ur Leukocyte Esterase Negative Urine RBC None seen Urine WBC 0-1/hpf Ur Squamous Epith Cells 0-1 /hpf Amorphous Sediment 1+ Urine Bacteria None seen Urine Mucus 1+ H Ur Culture Indicated? Cult not indicated Chlamy pneumoniae PCR Not detected Adenovirus (PCR) Not detected B.parapertussis DNA PCR Not detected Coronavirus OC43 (PCR) Not detected Coronavirus HKU1 (PCR) Not detected Coronavirus 229E (PCR) Not detected Coronavirus NL63 (PCR) Not detected Human Metapneumovir PCR Not detected Influenza Type A (PCR) Not detected Influenza Type B (PCR) Not detected M. pneumoniae (PCR) Not detected Parainfluenza 1 (PCR) Not detected Parainfluenza 2 (PCR) Not detected Parainfluenza 3 (PCR) Not detected Parainfluenza 4 (PCR) Not detected RSV (PCR) Not detected Entero/Rhino (PCR) Not detected Blood Type Antibody Screen Discharge Plan Discharge Plan Patient Disposition: Home Discharge comment: You're being discharged home with home health to bridge until hospice can open. You have been prescribed several medications to be used as needed for comfort: Morphine concentrate 5 mg sublingual every 4 hours as needed for pain or discomfort, lorazepam 0.5 mg sublingual every 6 hours as needed for anxiety or agitation, Zofran 4 mg sublingual every 8 hours as needed for nausea, acetaminophen 650 mg every 6 hours as needed for fever, scopolamine patch every 3 days as needed for excessive oral secretions, and bisacodyl suppository as needed for constipation. A Jamison catheter has been placed for comfort. You may stop all your other medications. Discharge orders & Medications Prescriptions: New acetaminophen 325 mg Tablet 650 mg PO Q6HR PRN (Reason: Fever/Mild Pain (1-3)) Qty: 30 RF: 0 bisacodyl 10 mg Suppository 10 mg GA DAILY PRN (Reason: Constipation) Qty: 30 RF: 0 ondansetron HCl [Zofran] 4 mg tablet 4 mg PO Q8H PRN (Reason: nausea and vomiting) Qty: 30 RF: 0 morphine 10 mg/5 mL solution 5 mg PO Q4H PRN (Reason: pain, discomfort, air hunger) Qty: 100 RF: 0 lorazepam 2 mg/mL concentrate 0.5 mg PO Q6H PRN (Reason: anxiety or agitation) Qty: 30 RF: 0 scopolamine base 1 mg over 3 days patch 3 day 1 patch transdermal Q3D PRN (Reason: excessive secretions) Qty: 10 RF: 0 Discontinued lisinopril 10 mg Tablet 10 mg PO DAILY RF: 0 naproxen sodium [Aleve] 220 mg Tablet 220 mg PO Q12H PRN (Reason: Pain (Scale Score 1-3)) RF: 0 vitamin B complex Tablet 1 tab PO DAILY RF: 0 hydrochlorothiazide 25 mg Tablet 25 mg PO DAILY RF: 0 levofloxacin 500 mg tablet 500 mg PO DAILY RF: 0 Diet/Activity/Treatments Diet: Diet as Tolerated Diet comment: Diet as tolerated for comfort Activity: Bed rest Visit Report/Discharge Packet Instructions: End of Life Care Discharge Data Attending Provider: Rolf Barrera Admit Date/Time: 04/19/19 07:37 Discharges patient from system. Discharge Date/Time: 04/19/19 13:34 Quality VTE Deep Vein Thrombosis/Pulmonary Embolism Present on Admission: No
--- NOTE | 2019-04-19 13:32 | PC.NURSE ---
Day shift: Pt left unit with BOOKSTORE CLERK in WC to car driven by Pt's spouse. Pt will be taken home by spouse and helped inside by family. Spouse will return to orange picking supervisor meds from pharmacy. Pt has all personal belongings. Paperwork signed. Scrips from MD are at pharmacy (see above).
--- NOTE | 2019-04-19 15:30 | CM.IDA ---
Initial DCP Assessment Note: Pt is a 79 yo male, resident of [place]. Pt here under observation, arrived to the ED in the middle of the night after coughing up blood at home, pt and spouse asking for assist w/hospice coordination. Pt w/recently diagnosed pancreatic cancer that has metastasized and perforated through pt's stomach. PCP: Celsa Rossi Payer: MONSE NORWOOD Met w/pt and his Stephanie this morning, explained SW role. Both feel strongly that pt should return home M[facility] and Dr De Leon agreeable to this plan, either DC w/ Hospice in place or w/HH to bridge to assist in medication management until Hospice f/u at home. Placed call to [facility], faxed referral per pt/spouse's request and later learned that they would have staff available for admission on Tuesday. Placed call to [facility] per Stephanie's request and Tong agreed to the referral and would attach expedite request for nursing visit. Faxed face sheet, completed F2F, order RN/AGRICULTURE SCIENCE TEACHER and clinical docs to [facility], later faxed DC summary and DC med list. Updated pt/spouse Stephanie, APPOINTMENT MANAGER/RN and Dr De Leon of [facility] and Stephanie appreciative, stating she will not need a hospital bed at this time because pt can live in his recliner. Additional family will be here tomorrow, and brother remains in town this afternoon. Faxed DC summary and DC med list to both [facility] and [facility] P: DC home w/family today via pov, [facility] RN to bridge for medical oversight until [facility] RN available for admission TESS Quigley
--- NOTE | 2019-05-01 09:34 | PC.NURSE ---
Late entry: Normal Saline stopped 04/19/19 [id number]
== END 2019-04-19 13:34 | disposition home or self-care (01) ==
LOC: ED 07:09 → AC 08:07
PROVIDERS: Admitting Provider Nurse Practitioner Gerontology; Emergency Provider Emergency Medicine; Visit Provider Nurse Practitioner Gerontology
DX: A41.9 Sepsis, unspecified organism (principal); R06.02 Shortness of breath; R04.2 Hemoptysis; C25.9 Malignant neoplasm of pancreas, unspecified; C78.7 Secondary malignant neoplasm of liver and intrahepatic bile duct; I10 Essential (primary) hypertension; E11.65 Type 2 diabetes mellitus with hyperglycemia
CPT/HCPCS: 36415; 71275; 74177; 80053; 81001; 82550; 83605; 83690; 84145; 84484; 85025; 85610; 85730; 86850; 86900; 86901; 87040; 87633; 93005; 93010; 96361; 96365; 96367; 99224; 99232; 99284; 99285; G0378; J2543; Q9967